=== PATIENT | male | born 1935 | race Caucasian/White ===

== ENCOUNTER → 2016-08-23 | Outpatient (REF) ==
[~2016-08-23] MED LIST: FLONASE NASAL S16 GM NS; MULTIPLE VITAMI1 CAP PO; NEXIUM 40MG40 MG PO; PROAIR HFA0.09 MG/AC IH; SYNTHROID0.2 MG/TAB PO
== END ==
LOC: ZLAB.WCH 11:11
DX: Z01.89 Encounter for other specified special examinations (principal)

== ENCOUNTER 2017-01-28 16:27 | Observation (INO) | payer OTHER ==
[~2017-01-28] VITALS: Ht 182.9 cm; Wt 97.5 kg
[2017-01-28] MEDS ORDERED: SYNTHROID0.2 MG/TAB PO (16:35)
[2017-01-28] MEDS ORDERED: PROAIR HFA0.09 MG/AC IH (16:36)
[2017-01-28] MEDS ORDERED: NEXIUM 40MG40 MG PO (16:36)
[2017-01-28] MEDS ORDERED: FLONASE NASAL S16 GM NS (16:37)
[2017-01-28] MEDS ORDERED: MULTIPLE VITAMI1 CAP PO (16:37)
[2017-01-28 17:46] LABS: BASO # 0.1 (0.0-0.2); BASO % 0.4 % (0.0-2.0); EOS # 0.5 (0.0-0.7); EOS % 3.9 % (0-4.0); GRAN # 10.6 (1.4-6.5); HEMATOCRIT 36.4 % (42.0-52.0); HEMOGLOBIN 12.8 g/dl (13.5-18.0); LYMPH # 1.2 (1.2-3.4); LYMPH % 8.8 % (20.0-51.0); MEAN CELL VOLUME 93 fl (80.0-100.0); MEAN CORPUSCULAR HEMOGLOBIN 33 pg (27.0-31.0); MEAN CORPUSCULAR HGB CONC 35 g/dl (33.0-37.0); MEAN PLATELET VOLUME 9.1 fl (7.4-10.4); MONO % 7.5 % (1.7-9.3); PLATELET COUNT 264 K/mm3 (130-400); REDCELL DISTRIBUTION WIDTH-CV 12.8 % (11.5-14.5); WHITE BLOOD COUNT 13.5 K/mm3 (4.8-10.8)
[2017-01-28 17:59] LABS: ADJUSTED CALCIUM 8.7 mg/dL (8.4-10.2); ALBUMIN 3.9 gm/dL (3.5-5.0); CALCIUM 8.6 mg/dL (8.4-10.2); CREATININE, serum 0.99 mg/dL (0.66-1.25); POTASSIUM 4.3 mmol/L (3.4-5.0); TOTAL PROTEIN 7.1 gm/dL (6.4-8.2)
[2017-01-28 18:06] LABS: PH 6 (5-8); SQUAMOUS EPITHELIAL None Seen /hpf; URINE APPEARANCE Clear; URINE BACTERIA None Seen /hpf; URINE BILIRUBIN Positive (NEGATIVE); URINE BLOOD Negative (NEGATIVE); URINE COLOR Yellow; URINE GLUCOSE Negative (NEGATIVE); URINE KETONE Trace (NEGATIVE); URINE UROBILINOGEN Negative (NEGATIVE); URINE WBC 0-2 /hpf
[2017-01-28 22:16] VITALS: BP 143/76; PULSE 92; TEMP 98.2
[2017-01-29 02:01] VITALS: BP 148/88; PULSE 103; TEMP 98.3
[2017-01-29 04:55] VITALS: BP 145/74; PULSE 91; TEMP 98.4
== END 2017-01-29 09:46 | disposition home or self-care (01) ==
LOC: COL.ER 16:27 → SURG 21:08
PROVIDERS: Emergency Medicine
DX: S51.022A Laceration with foreign body of left elbow, initial encounter (principal); S51.822A Laceration with foreign body of left forearm, initial encounter; S61.422A Laceration with foreign body of left hand, initial encounter; R00.0 Tachycardia, unspecified; V49.40XA Driver injured in collision with unspecified motor vehicles in traffic accident, initial encounter; K21.9 Gastro-esophageal reflux disease without esophagitis; J44.9 Chronic obstructive pulmonary disease, unspecified; R05 Cough; Z87.891 Personal history of nicotine dependence
CPT/HCPCS: G0378; J7030

== ENCOUNTER → 2017-03-04 | Outpatient (CLI) | payer MEDICARE, BC | LOC: COL.PUL 11:40 | DX: R05 Cough (principal); Z87.891 Personal history of nicotine dependence ==

== ENCOUNTER → 2017-04-19 | Outpatient (CLI) | payer MEDICARE, BC | LOC: COL.PUL 04-09 13:00 | DX: R05 Cough (principal); Z87.891 Personal history of nicotine dependence ==

== ENCOUNTER → 2017-10-17 | Outpatient (REF) | LOC: ZLAB.WCH 18:25 | DX: Z01.89 Encounter for other specified special examinations (principal) ==

== ENCOUNTER → 2018-03-21 | Outpatient (CLI) | payer MEDICARE, BC | LOC: COL.LAB 15:01 | DX: N40.0 Benign prostatic hyperplasia without lower urinary tract symptoms (principal) | CPT/HCPCS: G0103 ==

== ENCOUNTER → 2018-12-11 | Outpatient (CLI) | payer MEDICARE, BC ==
[2018-12-11 17:16] LABS: BASO % 0.4 % (0.0-2.0); EOS # 0.1 (0.0-0.7); EOS % 1.3 % (0-4.0); GRAN # 7.7 (1.4-6.5); HEMOGLOBIN 12.2 g/dl (13.5-18.0); LYMPH # 1.1 (1.2-3.4); LYMPH % 11.1 % (20.0-51.0); MEAN CELL VOLUME 93 fl (80.0-100.0); MEAN CORPUSCULAR HEMOGLOBIN 31 pg (27.0-31.0); MEAN CORPUSCULAR HGB CONC 33 g/dl (33.0-37.0); MEAN PLATELET VOLUME 9.6 fl (7.4-10.4); MONO # 0.6 (0.1-0.6); MONO % 6.4 % (1.7-9.3); PLATELET COUNT 340 K/mm3 (130-400); RED BLOOD COUNT 3.97 M/mm3 (4.20-5.60); REDCELL DISTRIBUTION WIDTH-CV 13.9 % (11.5-14.5)
[2018-12-11 17:30] LABS: HEMATOCRIT 36.9 % (42.0-52.0)
== END ==
LOC: ZCOL.LAB 16:19
PROVIDERS: Family Medicine
DX: E03.9 Hypothyroidism, unspecified (principal)

== ENCOUNTER → 2018-12-15 | Outpatient (CLI) | payer MEDICARE, BC ==
[~2018-12-15] MED LIST changes: +FLOMAX 0.40.4 MG/CAP PO; +RT ADVAIR 528 DISKUS IH; +RT SPIRIVA18 MCG IH; +ZOLOFT 25MG25 MG PO
[2018-12-15 18:22] LABS: ALBUMIN 4.2 gm/dL (3.5-5.0); CALCIUM 9.1 mg/dL (8.4-10.2); TOTAL PROTEIN 8.2 gm/dL (6.4-8.2)
[2018-12-15 19:39] LABS: CREATININE, serum 10.99 (0.66-1.25)
[2018-12-15 21:42] LABS: POTASSIUM 6.3 mmol/L (3.4-5.0)
== END ==
LOC: ZCOL.LAB 16:35
PROVIDERS: Family Medicine
DX: R42 Dizziness and giddiness (principal)

== ENCOUNTER 2018-12-16 10:59 | Inpatient (IN) | payer MEDICARE, BC ==
[2018-12-16] VITALS (331 sets, daily range): BP systolic 117–143; BP diastolic 55–91; PULSE 86–96; TEMP 98–98.8; O2SAT 82–100
[~2018-12-16] VITALS: Ht 182.9 cm; Wt 107.0 kg
[~2018-12-16 10:59] MED LIST changes: -FLOMAX 0.40.4 MG/CAP PO; -RT ADVAIR 528 DISKUS IH; -RT SPIRIVA18 MCG IH; -ZOLOFT 25MG25 MG PO
[2018-12-16 11:52] LABS: INR 1.1 (0.8-3.0); PROTHROMBIN TIME 12.8 SECONDS (9.7-12.8)
[2018-12-16 11:53] LABS: HEMATOCRIT 38.4 % (42.0-52.0); MEAN CELL VOLUME 93 fl (80.0-100.0); MEAN CORPUSCULAR HEMOGLOBIN 32 pg (27.0-31.0); MEAN CORPUSCULAR HGB CONC 34 g/dl (33.0-37.0); MEAN PLATELET VOLUME 8.6 fl (7.4-10.4); PLATELET COUNT 357 K/mm3 (130-400); RED BLOOD COUNT 4.13 M/mm3 (4.20-5.60); REDCELL DISTRIBUTION WIDTH-CV 13.7 % (11.5-14.5)
[2018-12-16 11:58] LABS: ALBUMIN 3.9 gm/dL (3.5-5.0); BILIRUBIN,TOTAL 0.9 mg/dL (0.0-1.0); CALCIUM 9.1 mg/dL (8.4-10.2); CREATININE, serum 10.26 (0.66-1.25); MAGNESIUM 2.1 mg/dL (1.6-2.3); PHOSPHOROUS 7.3 mg/dL (2.5-4.5); POTASSIUM 5.4 mmol/L (3.4-5.0); TOTAL PROTEIN 7.8 gm/dL (6.4-8.2)
[2018-12-16 12:16] LABS: EOSINOPHIL 6 % (0-4); LYMPHOCYTE 17 % (20.0-51.0); NEUTROPHILS 74 % (42.0-75.2); PLATELET ESTIMATE NORMAL (NORMAL)
[2018-12-16] MEDS ORDERED: ZOLOFT 25MG25 MG PO (12:40)
[2018-12-16 13:11] LABS: COLLECTION METHOD CLEAN CATCH
[2018-12-16 13:17] LABS: PH 6 (5-8); SQUAMOUS EPITHELIAL 0-2 /hpf; URINE APPEARANCE Clear; URINE BACTERIA None Seen /hpf; URINE BILIRUBIN Negative (NEGATIVE); URINE BLOOD 2+ (NEGATIVE); URINE COLOR Yellow; URINE GLUCOSE Negative (NEGATIVE); URINE KETONE Negative (NEGATIVE); URINE LEUKOCYTE ESTERASE Negative (NEGATIVE); URINE NITRATE Negative (NEGATIVE); URINE PROTEIN(semi-quant) 1+ (NEGATIVE); URINE UROBILINOGEN Negative (NEGATIVE)
--- NOTE | 2018-12-16 14:21 | NUR ---
Patient transferred to medical room 354. Sangita, student RN at bedside. Bed left in low and locked position, call light within reach, rails up x3, bed alarm armed and call light within reach. Family called and updated to patient location.
--- NOTE | 2018-12-16 14:50 | NUR ---
Patient arrives to ICU room 6 via ED cart. He is attached to monitors and assessment and vitals are as charted. Care assumed.
[2018-12-16] MEDS ORDERED: FLOMAX 0.40.4 MG/CAP PO (15:05)
[2018-12-16] MEDS ORDERED: RT SPIRIVA18 MCG IH (15:06)
[2018-12-16] MEDS ORDERED: RT ADVAIR 528 DISKUS IH (15:06)
--- NOTE | 2018-12-16 15:34 | NUR ---
Dr. Tate notified of consult.
[2018-12-16 16:09] LABS: CREATININE, serum 9.4 (0.66-1.25)
--- NOTE | 2018-12-16 16:10 | NUR ---
Dr. Tate rounds on patient at this time. Orders as entered CPOE.
--- NOTE | 2018-12-16 17:20 | NUR ---
Dr. Jernigan called regarding need for VTE orders and home medication review and order. states he will enter these CPOE. Care ongoing.
[2018-12-16 18:13] LABS: POTASSIUM 5.5 mmol/L (3.4-5.0)
[2018-12-16 18:34] LABS: CREATININE, serum 9.67 (0.66-1.25)
--- NOTE | 2018-12-16 21:00 | NUR ---
Patient resting in bed watching TV. No concerns at this time.
[2018-12-17] VITALS (451 sets, daily range): BP systolic 117–155; BP diastolic 55–86; PULSE 77–94; TEMP 97.6–98.6; O2SAT 89–99
--- NOTE | 2018-12-17 01:30 | NUR ---
Kendall patient yelling "help!" from room. Nurse went in to help patient at this time. Patient stated " I need to get out of here". Re-oriented by explaining that he is in the hospital and why he is here. Patient easily re-oriented and was appreciative for the assistance.
[2018-12-17 05:11] LABS: MEAN CELL VOLUME 94 fl (80.0-100.0); MEAN CORPUSCULAR HGB CONC 33 g/dl (33.0-37.0); MEAN PLATELET VOLUME 8.5 fl (7.4-10.4); PLATELET COUNT 325 K/mm3 (130-400); RED BLOOD COUNT 3.49 M/mm3 (4.20-5.60); REDCELL DISTRIBUTION WIDTH-CV 13.6 % (11.5-14.5)
[2018-12-17 05:16] LABS: HEMATOCRIT 32.9 % (42.0-52.0); HEMOGLOBIN 10.8 g/dl (13.5-18.0); MEAN CORPUSCULAR HEMOGLOBIN 31 pg (27.0-31.0)
[2018-12-17 05:22] LABS: ALBUMIN 3.3 gm/dL (3.5-5.0); BILIRUBIN,TOTAL 0.7 mg/dL (0.0-1.0); CALCIUM 8.3 mg/dL (8.4-10.2); POTASSIUM 4.7 mmol/L (3.4-5.0); TOTAL PROTEIN 6.7 gm/dL (6.4-8.2)
--- NOTE | 2018-12-17 05:31 | NUR ---
Critical K+ result not called to physician as trending downwards.
[2018-12-17 05:34] LABS: BILIRUBIN UNCONJUGATED 0.2 mg/dL (0.0-1.1); BILIRUBIN,DIRECT 0.4 mg/dL (0.0-0.4)
[2018-12-17 05:58] LABS: BAND 9 % (0-10); EOSINOPHIL 8 % (0-4); LYMPHOCYTE 10 % (20.0-51.0); METAMYELOCYTE 1 % (0-0); NEUTROPHILS 66 % (42.0-75.2)
[2018-12-17 05:59] LABS: PLATELET ESTIMATE NORMAL (NORMAL)
--- NOTE | 2018-12-17 07:30 | NUR ---
Report given to ADAM Garcia. Patient care transfered.
--- NOTE | 2018-12-17 09:52 | NUR ---
DAUGHTER HERE TO VISIT. DAUGHTER UPDATED ON PATIENT'S STATUS OVERNIGHT AND THIS AM.
--- NOTE | 2018-12-17 10:20 | NUR ---
CALLED DR PEREZ THE UROLOGIST PRESSROOM SUPERVISOR TO NOTIFY OF CONSULT. MESSAGE LEFT AT OFFICE. SPOKE WITH DR HOLLEY REGARDING POC. 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 NO PLANS FOR DIALYSIS CATHETER INSERTION. UPDATING PT'S DAUGHTER. PT ABLE TO EAT PER DR HOLLEY.
--- NOTE | 2018-12-17 12:18 | NUR ---
REPORT CALLED TO CYNTHIA MEDINA ON SURGICAL UNIT.
--- NOTE | 2018-12-17 12:45 | NUR ---
PT TRANSFERRED VIA WHEELCHAIR TO MEDICAL ROOM 344. PT'S BELONGINGS TRANSFERRED WITH PATIENT. DAUGHTER AT BEDSIDE. CONTACT MADE WITH CYNTHIA UPON TRANSFER.
--- NOTE | 2018-12-17 13:58 | NUR ---
pt to room 344 @ 1220 with report from Radha MEDINA. Pt a/o x3 but forgetful. Eaisly reorients, daughter at bedside. Patient has some scabs on forhead from past falls. Placed on fall precautions. Pt eating and drinking. no complaints at this time. dr Kelsey called for consult.
--- NOTE | 2018-12-17 14:08 | NUR ---
EVETTE student met with patient and patient's daughter (Vanessa) to discuss discharge plan. Patient lives independently just outside of [place]. Patient's PCP is Dr. Gali Wang and he uses [facility] for prescriptions. Patient has a cane at home but does not regularly use it. Patient reports independence with ADLs. Patient states he does have a DPOA-HC completed and it designates his daughter (Vanessa) as primary and his son as secondary. Daughter reports she has a copy at her home in . Patient's daughter inquired about discharge plan of home vs SNF. SW student explained what post-acute rehab would consist of and how the patient would have to qualify for Medicare Coverage with 3 midnight inpatient stays. Patient and Patient's daughter verbalized understanding and would like to wait to see how patient responds to treatment but are open to the option of SNF. SW to continue to follow.
--- NOTE | 2018-12-17 18:54 | NUR ---
REPORT TO SALOMON MEDINA.
--- NOTE | 2018-12-17 20:25 | NUR ---
Resting in recliner. Assessment complete. Lungs clear. Heart sounds normal. Bowels active x4. Pulses present throughout. Right lower leg edema +1. Left lower leg edema +2. Denies pain. Cline drainage without complications. Right forearm INT flushes without complications. Denies needs. Call light in reach.
--- NOTE | 2018-12-17 23:30 | NUR ---
Assisted to bed. Denies other needs. Call light in reach.
--- NOTE | 2018-12-18 02:23 | NUR ---
Resting in bed asleep. Call light in reach.
[2018-12-18 03:42] VITALS: BP 146/68; PULSE 85; TEMP 98.8
--- NOTE | 2018-12-18 03:54 | NUR ---
Resting in bed. Denies needs. Call light in reach.
--- NOTE | 2018-12-18 06:12 | NUR ---
Uneventful night. Resting in bed this AM. Cline without complications. Denies needs. Call light in reach.
--- NOTE | 2018-12-18 06:54 | NUR ---
Report given to ADAM Julio
[2018-12-18 07:05] LABS: BASO # 0.1 (0.0-0.2); BASO % 0.6 % (0.0-2.0); EOS # 0.4 (0.0-0.7); EOS % 5.3 % (0-4.0); GRAN # 5.4 (1.4-6.5); GRAN % 67.6 % (42.2-75.2); HEMOGLOBIN 10.8 g/dl (13.5-18.0); LYMPH # 1.4 (1.2-3.4); LYMPH % 17.1 % (20.0-51.0); MEAN CELL VOLUME 95 fl (80.0-100.0); MEAN CORPUSCULAR HEMOGLOBIN 31 pg (27.0-31.0); MEAN CORPUSCULAR HGB CONC 33 g/dl (33.0-37.0); MONO # 0.6 (0.1-0.6); PLATELET COUNT 307 K/mm3 (130-400); RED BLOOD COUNT 3.47 M/mm3 (4.20-5.60); REDCELL DISTRIBUTION WIDTH-CV 13.4 % (11.5-14.5)
[2018-12-18 07:07] LABS: HEMATOCRIT 32.9 % (42.0-52.0)
[2018-12-18 07:28] LABS: CALCIUM 8.8 mg/dL (8.4-10.2); POTASSIUM 4.3 mmol/L (3.4-5.0)
[2018-12-18 07:31] LABS: CREATININE, serum 7.27 (0.66-1.25)
[2018-12-18 07:42] VITALS: BP 144/81; PULSE 92; TEMP 98.3
--- NOTE | 2018-12-18 08:00 | NUR ---
PATIENT ASSISTED TO THE CHAIR THIS MORNING WITH PHYSICAL THERAPY. PATIENT IS A&OX4 WITH SOME CONFUSION AND FORGETFULNESS. VSS. TELE IN PLACE. BOWEL SOUNDS ACTIVE ALL FOUR QUADRANTS. PATIENT TOLERATING DIET WITHOUT COMPLAINTS OF N/V. POSITIVE PEDAL PULSES EQUAL BILATERALLY. 3+ PITTING-EDEMA TO FEET BILATERALLY. 2+ PITTING-EDEMA TO BLE NOTED. SHUKLA CATHETER TO DEPENDENT DRAINAGE DRAINING CLEAR YELLOW URINE TO SHUKLA BAG. CLOSED SCABBED ABRASIONS TO KNEES BILATERALLY AND WILLIE. CLOSED SCABBED ABRASIONS TO FOREHEAD X2 AND HELP DESK COORDINATOR. SEE MORNING ASSESSMENT. LEFT FOREARM TO INT. CALL LIGHT WITHIN REACH. CHAIR ALARM ON. PATIENT DENIES ANY NEEDS AT THIS TIME.
--- NOTE | 2018-12-18 10:58 | NUR ---
First visit from the geography teacher. No needs right now.
--- NOTE | 2018-12-18 11:17 | NUR ---
PATIENT AMBULATED HALLS WITH PHYSICAL THERAPY.
--- NOTE | 2018-12-18 11:35 | NUR ---
EVETTE seals and EVETTE informed by PT that patient would benefit from SNF. EVETTE student met with patient and patient's daughter to discuss rehab options. EVETTE seals presented Medicare.gov list of nursing homes in the [facility]. Patient and Patient's daughter would like to think and talk things over and do some research. EVETTE seals will follow up with patient and daughter this afternoon to complete patient choice form.
[2018-12-18 11:41] VITALS: BP 148/71; PULSE 79; TEMP 98.4
--- NOTE | 2018-12-18 13:46 | NUR ---
Patient and Patient's daughter have chosen 1) [facility] and 2) [facility]. EVETTE student presented choice form, patient signed. EVETTE student provided copy to patient's daughter. EVETTE student to contact and fax referral to [facility] and [facility]. SW to continue to follow.
--- NOTE | 2018-12-18 14:55 | NUR ---
SW was informed that [facility] and [facility] have both accepted the patient. ML came to meet patient and daughter. SW to continue to follow.
--- NOTE | 2018-12-18 15:46 | NUR ---
After patient and daughter visited with Eliecer (with [facility]), EVETTE student met with patient and daughter. Patient would like to pursue with [facility] for a skilled stay. EVETTE updated [facility] and ML of patient's choice. SW to continue to follow.
[2018-12-18 15:47] VITALS: BP 162/78; PULSE 81; TEMP 98.5
--- NOTE | 2018-12-18 19:00 | NUR ---
REPORT GIVEN TO ADAM MONTGOMERY.
[2018-12-18 19:25] VITALS: BP 162/76; PULSE 88; TEMP 98.5
--- NOTE | 2018-12-18 19:40 | NUR ---
Patient sitting in recliner watching tv. Assessment completed- lungs clear ,abdominal sounds active, pulses +2 pedal, +3 radial, cap refill <3 seconds, denies pain. Indwelling batres in place- draining clear and yellow. Alert and oriented with intermittent confusion, chair alarm on. No further needs at this time.
[2018-12-18 23:33] VITALS: BP 154/81; PULSE 88; TEMP 99.2
[2018-12-19 03:41] VITALS: BP 152/72; PULSE 96; TEMP 98.7
--- NOTE | 2018-12-19 05:01 | NUR ---
Pt slept most of the night. VSS, no reports of pain.
--- NOTE | 2018-12-19 06:41 | NUR ---
Report given to ADAM Julio. Patient currently asleep at this time.
[2018-12-19 07:32] LABS: POTASSIUM 4.4 mmol/L (3.4-5.0)
[2018-12-19 07:38] LABS: CREATININE, serum 5.82 (0.66-1.25)
--- NOTE | 2018-12-19 08:00 | NUR ---
PATIENT UP TO THE CHAIR WITH PHYSICAL THERAPY THIS MORNING. PATIENT IS A&OX4 WITH SOME INTERMITTENT CONFUSION AND IMPULSIVENESS. VSS. TELE IN PLACE. ABRASIONS X2 TO FOREHEAD SCABBED, CLOSED AND WILLIE. ABRASIONS TO KNEES BILATERALLY. KNEE ABRASIONS SCABBED, CLOSED AND WORKCELL OPERATOR. RIGHT ELBOW ABRASION DRESSED WITH A BANDAID AND IS CD&I. 3+ PITTING-EDEMA TO FEET BILATERALLY. SHUKLA CATHETER TO DEPENDENT DRAINAGE WITH MODERATE AMOUNTS OF CLEAR PALE YELLOW URINE PRESENT IN SHUKLA BAG. LEFT WRIST TO INT. SEE MORNING ASSESSMENT. PATIENT DENIES PAIN AT THIS TIME. CALL LIGHT WITHIN REACH. DAUGHTER PRESENT AT THE BEDSIDE.
[2018-12-19 08:41] VITALS: BP 137/73; PULSE 91; TEMP 98.4
--- NOTE | 2018-12-19 11:40 | NUR ---
DISCHARGE INSTRUCTIONS REVIEWED WITH PATIENT. ALL QUESTIONS ANSWERED. PATIENT PERSONAL BELONGINGS GATHERED. PATIENT WAITING ON SON TO ARRIVE TO DISCHARGE.
[2018-12-19 12:30] VITALS: BP 127/75; PULSE 88; TEMP 98.5
[2018-12-19 14:30] VITALS: BP 150/76; PULSE 80; TEMP 97.5
--- NOTE | 2018-12-19 15:38 | NUR ---
EVETTE student faxed updates to Eliecer at [facility]. Discharge set for tomorrow (12/20).
--- NOTE | 2018-12-19 16:40 | NUR ---
PATIENT VOIDED 200MLS OF CLEAR YELLOW URINE POST CATHETER REMOVAL. PATIENT DENIES ANY PAINFUL OR DIFFICULTY VOIDING. PATIENT BLADDER SCANNED. 140 MLS OF URINE PRESENT IN BLADDER. HIMANSHU MOCTEZUMA NOTIFIED. ORDERS GIVEN TO LEAVE CATHETER OUT AND TO BLADDER SCAN PATIENT POST VOID FOR THE NEXT COUPLE VOIDS.
--- NOTE | 2018-12-19 17:50 | NUR ---
Patient sitting up in recliner. Daughter at bedside off and on. Single stick to right forearm, unsecssfuly, pt tolerated well with no compaints of pain, bleeding, or redness.Call light within reach, no further needs at this time. Reporto off to Primary nurse, ADAM Julio.
--- NOTE | 2018-12-19 18:30 | NUR ---
PATIENT VOIDED 225 MLS OF CLEAR YELLOW URINE. PATIENT BLADDER SCANNED FOR POST-VOID RESIDUALS. 230 MLS OF URINE PRESENT IN THE BLADDER. WILL CONTINUE TO MONITOR.
--- NOTE | 2018-12-19 18:46 | NUR ---
REPORT GIVEN TO ADAM MONTGOMERY.
--- NOTE | 2018-12-19 19:21 | NUR ---
Patient sitting in relciner watching tv. Assessment copmleted- lungs clear, abdominal sounds active, pulses +2 pedal, +3 radial, cap refill <3 seconds, denies pain, alert and oriented. Reminded pt to notify staff when needing to urinate for post void residual- patient stated he understood.
[2018-12-19 20:00] VITALS: BP 142/86; PULSE 80; TEMP 99
--- NOTE | 2018-12-19 21:14 | NUR ---
Pt voided 250, post void residual 136. Pt reports he feels as if he emptied copmletely. Returned to chair. RT now at bedside.
--- NOTE | 2018-12-19 22:00 | NUR ---
VOIDED 200 MLS, POST VOID 108.
--- NOTE | 2018-12-19 23:35 | NUR ---
VOIDED 150, POST VOID 128 MLS.
[2018-12-20 00:13] VITALS: BP 151/70; PULSE 81; TEMP 98.8
--- NOTE | 2018-12-20 03:03 | NUR ---
Call from telemery, pt's HR in 120's. Patient ambultaing to restroom at this time. Returned to bed, HR now coming back down, in the 90's.
[2018-12-20 03:41] VITALS: BP 140/65; PULSE 98; TEMP 98.3
--- NOTE | 2018-12-20 05:10 | NUR ---
Pt slept on/off last night. Continuing to void q2-3 hours. VSS, no reports ofpain.
[2018-12-20 07:06] LABS: BASO % 0.4 % (0.0-2.0); EOS # 0.3 (0.0-0.7); GRAN # 7.3 (1.4-6.5); GRAN % 74.9 % (42.2-75.2); HEMOGLOBIN 11.1 g/dl (13.5-18.0); LYMPH # 1.3 (1.2-3.4); LYMPH % 13.3 % (20.0-51.0); MEAN CELL VOLUME 93 fl (80.0-100.0); MEAN CORPUSCULAR HEMOGLOBIN 31 pg (27.0-31.0); MEAN CORPUSCULAR HGB CONC 33 g/dl (33.0-37.0); MEAN PLATELET VOLUME 9.2 fl (7.4-10.4); MONO # 0.7 (0.1-0.6); MONO % 7.4 % (1.7-9.3); PLATELET COUNT 265 K/mm3 (130-400); RED BLOOD COUNT 3.58 M/mm3 (4.20-5.60); REDCELL DISTRIBUTION WIDTH-CV 13.2 % (11.5-14.5)
[2018-12-20 07:13] LABS: HEMATOCRIT 33.3 % (42.0-52.0)
--- NOTE | 2018-12-20 07:15 | NUR ---
Report received from ADAM Myers. PT in bed resting, bed alarm on will continue to monitor.
[2018-12-20 07:23] LABS: CALCIUM 9.1 mg/dL (8.4-10.2); CREATININE, serum 4.97 (0.66-1.25); POTASSIUM 4.6 mmol/L (3.4-5.0)
--- NOTE | 2018-12-20 07:25 | NUR ---
Report given to ADAM Garsia.
[2018-12-20 08:00] VITALS: BP 140/53; PULSE 89; TEMP 98.8
--- NOTE | 2018-12-20 10:13 | NUR ---
Assessment charted. Pt up to bathroom often, does not call and just goes without having called, still impulsive and does not use urinal unless explicitly stated. PVR for last urination was 248 mls, notified dr. Ly. COHEN to . Scabs to knees bilaterally. LLE +1 edema. Daughter now at bedside, will continue to monitor.
[2018-12-20 10:37] VITALS: BP 120/63; PULSE 97; TEMP 100
--- NOTE | 2018-12-20 12:01 | NUR ---
Spoke with Dr. Tate regarding patient. He would like to have [facility] bladder scan q12 hours, catheterize if greater than 400 mls in bladder. Also if no void for more than 12 hours, catheterize patient.
[2018-12-20 12:47] VITALS: BP 120/63; PULSE 97; TEMP 100
--- NOTE | 2018-12-20 12:52 | NUR ---
The patient is to discharge today, 12/[address] [facility] for a skilled stay. SW faxed the discharge orders to [facility] and confirmed a between 1400 or 1430 transport time. SW contacted the patient's daughter to update her on transport time. There are no additional needs at this time.
--- NOTE | 2018-12-20 13:11 | NUR ---
Report called to [facility] nurse who will be resuming care. REturned pharmacy medications to the patient's daughter Vanessa who will take them home. Pt ready for discharge, will leave with all belongings with [facility] staff when they arrive. Criteria met.
--- NOTE | 2018-12-20 14:30 | NUR ---
Pt picked up by [facility] transport at this time via w/c. Left wtih all bleongings, criteria met.
== END 2018-12-20 14:35 | DRG 683 ==
LOC: COL.ER 10:59 → ICU 13:01 → SURG 13:01
PROVIDERS: Family Medicine; Physician Assistant; ADMIT Hospitalist
DX: N17.9 Acute kidney failure, unspecified (principal); E87.2 Acidosis; N13.8 Other obstructive and reflux uropathy; E87.5 Hyperkalemia; N40.1 Benign prostatic hyperplasia with lower urinary tract symptoms; N18.9 Chronic kidney disease, unspecified; J44.9 Chronic obstructive pulmonary disease, unspecified; E03.9 Hypothyroidism, unspecified; Z87.891 Personal history of nicotine dependence; N28.1 Cyst of kidney, acquired; D64.9 Anemia, unspecified; E83.39 Other disorders of phosphorus metabolism; F32.9 Major depressive disorder, single episode, unspecified; R73.03 Prediabetes
CPT/HCPCS: 99223-AI; 99231-AI; 99232-AI; 99239; J1644; J1815; J7030

== ENCOUNTER → 2018-12-23 | Outpatient (REF) ==
[~2018-12-23] MED LIST changes: +FLOMAX 0.40.4 MG/CAP PO; +RT ADVAIR 528 DISKUS IH; +RT SPIRIVA18 MCG IH; +ZOLOFT 25MG25 MG PO
[2018-12-23 14:20] LABS: CALCIUM 9.2 mg/dL (8.4-10.2); CREATININE, serum 3.38 (0.66-1.25); POTASSIUM 4.3 mmol/L (3.4-5.0)
== END ==
LOC: ZLAB.STJ 13:56
PROVIDERS: Internal Medicine
DX: N17.9 Acute kidney failure, unspecified (principal)

== ENCOUNTER → 2018-12-25 | Outpatient (CLI) | payer MEDICARE, BC ==
[2018-12-25 16:34] LABS: BASO # 0.1 (0.0-0.2); BASO % 0.8 % (0.0-2.0); EOS # 0.2 (0.0-0.7); EOS % 3.2 % (0-4.0); GRAN # 4.9 (1.4-6.5); HEMOGLOBIN 11.6 g/dl (13.5-18.0); LYMPH # 1.2 (1.2-3.4); LYMPH % 16.7 % (20.0-51.0); MEAN CELL VOLUME 96 fl (80.0-100.0); MEAN CORPUSCULAR HEMOGLOBIN 31 pg (27.0-31.0); MEAN CORPUSCULAR HGB CONC 32 g/dl (33.0-37.0); MEAN PLATELET VOLUME 10.4 fl (7.4-10.4); MONO # 0.8 (0.1-0.6); MONO % 10.9 % (1.7-9.3); PLATELET COUNT 341 K/mm3 (130-400); RED BLOOD COUNT 3.74 M/mm3 (4.20-5.60); REDCELL DISTRIBUTION WIDTH-CV 13.5 % (11.5-14.5)
[2018-12-25 16:38] LABS: HEMATOCRIT 35.9 % (42.0-52.0)
[2018-12-25 16:46] LABS: ALBUMIN 4.2 gm/dL (3.5-5.0); BILIRUBIN,TOTAL 0.6 mg/dL (0.0-1.0); CALCIUM 9.5 mg/dL (8.4-10.2); CREATININE, serum 2.95 (0.66-1.25); PHOSPHOROUS 4.1 mg/dL (2.5-4.5); POTASSIUM 4.1 mmol/L (3.4-5.0); TOTAL PROTEIN 8.3 gm/dL (6.4-8.2)
== END ==
LOC: ZCOL.LAB 16:10
PROVIDERS: Family Medicine
DX: D64.9 Anemia, unspecified (principal); N19 Unspecified kidney failure

== ENCOUNTER → 2019-01-14 | Outpatient (CLI) | payer MEDICARE, BC | LOC: ZCOL.LAB 17:03 | DX: L02.91 Cutaneous abscess, unspecified (principal) ==

== ENCOUNTER → 2019-01-21 | Outpatient (CLI) | payer MEDICARE, BC ==
[2019-01-21 19:10] LABS: BASO % 0.4 % (0.0-2.0); EOS # 0.2 (0.0-0.7); EOS % 2.2 % (0-4.0); GRAN # 5.7 (1.4-6.5); GRAN % 70.2 % (42.2-75.2); HEMOGLOBIN 11.3 g/dl (13.5-18.0); LYMPH # 1.5 (1.2-3.4); LYMPH % 18.1 % (20.0-51.0); MEAN CELL VOLUME 97 fl (80.0-100.0); MEAN CORPUSCULAR HEMOGLOBIN 32 pg (27.0-31.0); MEAN CORPUSCULAR HGB CONC 33 g/dl (33.0-37.0); MONO # 0.7 (0.1-0.6); MONO % 8.7 % (1.7-9.3); PLATELET COUNT 289 K/mm3 (130-400); RED BLOOD COUNT 3.56 M/mm3 (4.20-5.60); REDCELL DISTRIBUTION WIDTH-CV 14.1 % (11.5-14.5)
[2019-01-21 19:26] LABS: HEMATOCRIT 34.4 % (42.0-52.0)
[2019-01-21 19:33] LABS: CALCIUM 9.2 mg/dL (8.4-10.2); CREATININE, serum 1.54 (0.66-1.25); POTASSIUM 5.1 mmol/L (3.4-5.0)
[2019-01-21 20:04] LABS: PSA-TOTAL 7.53 ng/mL (0-4)
== END ==
LOC: ZCOL.LAB 17:48
PROVIDERS: Family Medicine
DX: N17.9 Acute kidney failure, unspecified (principal); N40.0 Benign prostatic hyperplasia without lower urinary tract symptoms
CPT/HCPCS: G0103

== ENCOUNTER → 2019-03-23 | Outpatient (CLI) | payer MEDICARE, BC ==
[2019-03-23 18:48] LABS: BASO % 0.4 % (0.0-2.0); EOS # 0.2 (0.0-0.7); EOS % 2.2 % (0-4.0); GRAN # 5.9 (1.4-6.5); GRAN % 72.9 % (42.2-75.2); LYMPH # 1.2 (1.2-3.4); LYMPH % 14.5 % (20.0-51.0); MEAN CELL VOLUME 95 fl (80.0-100.0); MEAN CORPUSCULAR HEMOGLOBIN 32 pg (27.0-31.0); MEAN CORPUSCULAR HGB CONC 34 g/dl (33.0-37.0); MEAN PLATELET VOLUME 9.6 fl (7.4-10.4); MONO # 0.8 (0.1-0.6); MONO % 9.5 % (1.7-9.3); PLATELET COUNT 383 K/mm3 (130-400); REDCELL DISTRIBUTION WIDTH-CV 12.7 % (11.5-14.5)
[2019-03-23 19:03] LABS: CALCIUM 9.3 mg/dL (8.4-10.2); CREATININE, serum 1.17 (0.66-1.25); POTASSIUM 5.7 mmol/L (3.4-5.0)
== END ==
LOC: ZCOL.LAB 16:40
PROVIDERS: Family Medicine
DX: N18.9 Chronic kidney disease, unspecified (principal)

== ENCOUNTER → 2019-04-08 | Outpatient (CLI) | payer MEDICARE, BC ==
[2019-04-08 18:23] LABS: CREATININE, serum 1.14 (0.66-1.25); POTASSIUM 4.6 mmol/L (3.4-5.0)
== END ==
LOC: ZCOL.LAB 16:08
PROVIDERS: Family Medicine
DX: E78.5 Hyperlipidemia, unspecified (principal)

== ENCOUNTER 2021-06-04 15:03 | Inpatient (IN) | payer MEDICARE, BC ==
[~2021-06-04] VITALS: Ht 182.9 cm; Wt 95.1 kg
[2021-06-04 15:34] LABS: HEMATOCRIT 38.9 % (42.0-52.0); HEMOGLOBIN 13.8 g/dl (13.5-18.0); MEAN CELL VOLUME 92 fl (80.0-100.0); MEAN CORPUSCULAR HEMOGLOBIN 33 pg (27.0-31.0); MEAN CORPUSCULAR HGB CONC 36 g/dl (33.0-37.0); MEAN PLATELET VOLUME 8.8 fl (7.4-10.4); PLATELET COUNT 280 K/mm3 (130-400); RED BLOOD COUNT 4.25 M/mm3 (4.20-5.60); REDCELL DISTRIBUTION WIDTH-CV 12.5 % (11.5-14.5)
[2021-06-04 15:39] LABS: COLLECTION METHOD CLEAN CATCH
[2021-06-04 15:44] LABS: MUCOUS Present /lpf; PH 6 (5-8); SQUAMOUS EPITHELIAL 0-2 /hpf; URINE APPEARANCE Hazy; URINE BACTERIA None Seen /hpf; URINE BILIRUBIN Negative (NEGATIVE); URINE BLOOD 3+ (NEGATIVE); URINE COLOR Amber; URINE GLUCOSE Negative (NEGATIVE); URINE KETONE Negative (NEGATIVE); URINE LEUKOCYTE ESTERASE Negative (NEGATIVE); URINE NITRATE Negative (NEGATIVE); URINE PROTEIN(semi-quant) 2+ (NEGATIVE); URINE UROBILINOGEN Negative (NEGATIVE)
[2021-06-04 15:53] LABS: ALBUMIN 3.5 gm/dL (3.4-4.8); BILIRUBIN,TOTAL 1.6 mg/dL (0.2-1.2); CALCIUM 9.1 mg/dL (8.4-10.2); POTASSIUM 3.9 mmol/L (3.5-4.5); TOTAL PROTEIN 7.2 gm/dL (6.2-8.1)
[2021-06-04 16:11] LABS: LYMPHOCYTE 2 % (20.0-51.0); NEUTROPHILS 96 % (42.0-75.2)
[2021-06-04 16:12] LABS: PLATELET ESTIMATE NORMAL (NORMAL)
[2021-06-04 16:20] LABS: CREATININE, serum 1.46 mg/dL (0.72-1.25)
[2021-06-04 20:05] VITALS: BP 102/55; PULSE 94; TEMP 99
--- NOTE | 2021-06-04 21:00 | NUR ---
PT ARRIVES TO ROOM 325 VIA ER CART @ 1954. PT IS TRANSFERRED INTO BED WITH 2 ASSIST. DAUGHTER @ BEDSIDE. PT IS ALERT ET ORIENTED TO PLACE BUT BECOMES CONFUSED ABOUT SITUATION. SHORT TERM MEMORY IS POOR. PT'S DAUGHTER PROVIDES A MED LIST FOR THE MED REC TO BE COMPLETED. PT ET DAUGHTER EDUCATED ON CURRENT VISIOR RESTRICTIONS, VERBALIZES UNDERSTANDING. PT HAS LOWER DENTURES @ BEDSIDE ET HIS GLASSES ON. PT STATES THAT HE USES A CANE @ HOME TO AMBULATE ET ASKS ABOUT IT BUT NO CANE WAS BROUGHT TO ROOM WITH HIM. IV FLUIDS INFUSING. PT DENIES ANY PAIN OR SOB. PT STATES THAT HE DRINKS A GLASS OF WINE EVERY NIGHT BEFORE BED BUT THAT IT IS A PRETTY BIG GLASS. ALSO STATES THAT HE USUALLY DRINKS 1 16OZ BOTTLE OF WATER/DAY. PT EDUCATED MEDICAL CONCIERGE LIGHT, FALL PRECAUTIONS, FLUID ENCOURAGEMENT, ET PERIPHERAL IV. RECALL IS LIMITED. BED ALARM ON, CALL LIGHT WITHIN REACH.
[2021-06-04] MEDS ORDERED: ZOLOFT 25MG25 MG PO (22:26)
[2021-06-05 00:22] VITALS: BP 104/56; PULSE 97; TEMP 97.8
--- NOTE | 2021-06-05 00:30 | NUR ---
PT'S BED ALARM BEGINS ALARMING. PT IS SITIING ON EDGE OF BED ATTEMPTING TO STAND UP. PT IS TOLD TO SIT BACK DOWN BUT IS VERY IMPULSIVE ET TRIES TO STAND UP. PT DOES NOT UNDERSTAND WHY HE HAS TO WAIT FOR HELP TO LEAVE BED. ATTEMPT MADE TO RE-ORIENT PT BUT QUICKLY FORGETS AGAIN. PT REPEATEDLY ASKS WHAT HIS IV IS ET PULLS ON TUBING. PT IS ASSISTED WITH 1 ASSIST TO STAND AT BEDSIDE TO USE URINAL. PT'S URINE IS TEA COLORED ET CLOUDY. PT ASSISTED BACK INTO BED, GAIT IS VERY UNSTEADY ET PT LIMPS ON LEFT LEG. PT STATES THAT HE HAS A BAD KNEE. RE-ORIENTED TO CALL LIGHT ET FALL PRECAUTIONS. PT DOES NOT REMEMBER FALLING RECENTLY @ HOME. BED ALARM ON.
[2021-06-05] MEDS ORDERED: EUTHYROX175 MCG PO (03:01)
[2021-06-05 03:21] VITALS: BP 121/57; PULSE 99; TEMP 98.5
--- NOTE | 2021-06-05 03:45 | NUR ---
PT SETS OFF BED ALARM TRYING TO LEAVE BED BY SELF. CONTINUES TO BE PLEASANTLY CONFUSED. PT IS ASSISTED TO STAND ET URINATE IN URINAL. PT URINATES 100 ML OF DARK TEA COLORED CLOUDY URINE. PT IS SLOW TO START STREAM OF URINE. PT ASSISTED BACK INTO BED. BED ALARM ON. CALL LIGHT WITHIN REACH.
--- NOTE | 2021-06-05 06:20 | NUR ---
PT USES CALL LIGHT TO ASK FOR BR ASSISTANCE. PT IS ASSISTED TO STAND @ EDGE OF BED TO USE URINAL. PT URINATES 100 ML DARK JAYLA URINE IN THE URINAL. PT MOVES THE URINAL ET ACCIDENTLY URINATES A MODERATE AMOUNT ONTO THE FLOOR. PT IS ASSISSTED BACK INTO BED. LAB HERE TO DRAW BLOOD. BED ALARM IS ON, CALL LIGHT WITHIN REACH.
[2021-06-05 08:17] VITALS: BP 95/45; PULSE 94; TEMP 99.4
[2021-06-05 08:27] LABS: HEMOGLOBIN 12.1 g/dl (13.5-18.0); MEAN CELL VOLUME 94 fl (80.0-100.0); MEAN CORPUSCULAR HEMOGLOBIN 33 pg (27.0-31.0); MEAN CORPUSCULAR HGB CONC 35 g/dl (33.0-37.0); MEAN PLATELET VOLUME 9.4 fl (7.4-10.4); PLATELET COUNT 246 K/mm3 (130-400); RED BLOOD COUNT 3.68 M/mm3 (4.20-5.60); REDCELL DISTRIBUTION WIDTH-CV 12.9 % (11.5-14.5)
[2021-06-05 08:33] LABS: HEMATOCRIT 34.4 % (42.0-52.0)
--- NOTE | 2021-06-05 09:00 | NUR ---
PT UP TO SIDE OF BED FOR BREAKFAST. ATE 100 % OF BREAKFAST. PT IS NOW A/O X4. SOME CONFUSION NOTED AT SHIFT CHANGE THAT APPEARS TO HAVE RESOLVED.
[2021-06-05 09:07] LABS: ALBUMIN 2.8 gm/dL (3.4-4.8); CALCIUM 8.1 mg/dL (8.4-10.2); CREATININE, serum 1.21 mg/dL (0.72-1.25); POTASSIUM 3.8 mmol/L (3.5-4.5); TOTAL PROTEIN 5.9 gm/dL (6.2-8.1)
[2021-06-05 09:27] LABS: BAND 18 % (0-10); LYMPHOCYTE 10 % (20.0-51.0); NEUTROPHILS 66 % (42.0-75.2)
[2021-06-05 09:28] LABS: PLATELET ESTIMATE NORMAL (NORMAL)
--- NOTE | 2021-06-05 09:41 | NUR ---
SW unsuccessful in waking patient at time of visit; Chart review indicates pt lives alone [place]; pt is and daughter Elva ([phone]) lives in [place] as well. PCP is listed as Evelyn Alfaro PA-C. SW will follow up when pt is awake.
[2021-06-05 12:10] VITALS: BP 111/55; PULSE 86; TEMP 99
--- NOTE | 2021-06-05 14:06 | NUR ---
EVETTE met with patient and his dtr, Elva Limon , to discuss discharge plan. Pt reports he lives in a 2 story house but he lives on the 2nd level. Dtr lives in [place] but is actively involved in pt's life. She assisted in answering questions and is also pt's MPOA. Pt states he lives alone and enjoys being a loner. He has a raised toilet seat, shower chair, and a walking cane that he uses most of the time. Dtr states pt was in rehab a couple of yrs ago but could not recall where. Pt states he realizes he's going to have to leave his house someday but he wants to wait. Pt receives his medications at [facility] ad he sees Evelyn Alfaro PA-C. Pt and dtr are ok to have home health care. List provided and they want a referral sent to [facility]. Referral faxed. *D/C home with home health
[2021-06-05 15:37] VITALS: BP 119/59; PULSE 96; TEMP 98.7
[2021-06-05 19:26] VITALS: BP 121/66; PULSE 98; TEMP 98.8
--- NOTE | 2021-06-05 20:06 | NUR ---
PATIENT IS ALERT AND ORIENTED X3 BUT HAS SOME CONFUSION. PATIENT HAS CARPELT TUNNEL TO RIGHT WRIST AND IV TO LEFT WRIST. PATIENT WEARING PULL UPS DUE TO COME INCONTINENCE. PATIENT IS ON GENERAL DIET AND TELE. WILBER HAD LOVENOX PER ORDERS AND HAS SCD'S IN ROOM. PATIENT HAS BED ALARM ON. PATIENT GIVEN MORE ICE WATER. PATIENT DENIES PAIN OR FURTHER NEEDS AT THIS TIME. CALL LIGHT WITHIN REACH. HEAD TO TOE ASSESSMENT COMPLETE.
--- NOTE | 2021-06-05 21:39 | NUR ---
PATIENT EXPRESSED HE WOULD BE INTERESTED IN GETTING A WALKER. WILL REPORT TO DAYSALFT.
[2021-06-06 00:58] VITALS: BP 140/72; PULSE 96; TEMP 98.5
[2021-06-06 05:10] VITALS: BP 122/62; PULSE 93; TEMP 98.5
--- NOTE | 2021-06-06 06:07 | NUR ---
PATIENT DID WELL THROUGHOUT NIGHT. BED ALARM ON ALL NIGHT. GOT UP TO BATHROOM A FEEW TIMES THROUGHOUT THE NIGHT. NO FURTHER NEEDS AT THIS TIME. WILL REPORT TO DAYSNVFT
[2021-06-06 06:49] LABS: BASO % 0.1 % (0.0-2.0); EOS % 0.3 % (0-4.0); GRAN # 5.9 K/mm3 (1.4-6.5); GRAN % 80.4 % (42.2-75.2); HEMOGLOBIN 10.7 g/dl (13.5-18.0); LYMPH # 0.8 K/mm3 (1.2-3.4); LYMPH % 10.7 % (20.0-51.0); MEAN CELL VOLUME 92 fl (80.0-100.0); MEAN CORPUSCULAR HEMOGLOBIN 32 pg (27.0-31.0); MEAN CORPUSCULAR HGB CONC 35 g/dl (33.0-37.0); MEAN PLATELET VOLUME 9.2 fl (7.4-10.4); MONO # 0.6 K/mm3 (0.1-0.6); MONO % 8.1 % (1.7-9.3); PLATELET COUNT 221 K/mm3 (130-400); RED BLOOD COUNT 3.32 M/mm3 (4.20-5.60); REDCELL DISTRIBUTION WIDTH-CV 12.8 % (11.5-14.5)
[2021-06-06 06:50] LABS: HEMATOCRIT 30.4 % (42.0-52.0)
[2021-06-06 07:10] LABS: ALBUMIN 2.6 gm/dL (3.4-4.8); BILIRUBIN,TOTAL 0.6 mg/dL (0.2-1.2); CALCIUM 8.3 mg/dL (8.4-10.2); CREATININE, serum 1.04 mg/dL (0.72-1.25); POTASSIUM 3.5 mmol/L (3.5-4.5); TOTAL PROTEIN 5.6 gm/dL (6.2-8.1)
[2021-06-06 07:16] VITALS: BP 140/72; PULSE 100; TEMP 98.8
[2021-06-06] MEDS ORDERED: CEPHALEXIN500 M1 PO (09:27)
[2021-06-06 09:44] VITALS: BP 127/63; PULSE 100
--- NOTE | 2021-06-06 10:28 | NUR ---
Initial visit; Patient thanked Safety Instruction Police Officer for looking in on him and keeping him in her prayers.
[2021-06-06 11:51] VITALS: BP 134/65; PULSE 90; TEMP 98.5
--- NOTE | 2021-06-06 12:42 | NUR ---
Patient alert and oriented, answers questions appropriately. See assessment. Patient with no AMS at this time, recants events of the morning and follows conversation appropriately. No c/o urinary burning, frequency or hesitancy. No other c/o at this time.
--- NOTE | 2021-06-06 14:25 | NUR ---
EVETTE faxed DME order to [facility] for walker as patient has discharge orders for today. Instructed patient's daughter that she would need to pick walker up from their office after discharged.
--- NOTE | 2021-06-06 16:03 | NUR ---
Discharge instructions reviewed with patient and daughter, verbalized understanding. Discharged via wheelchair to auto/home with daughter at 1555.
--- NOTE | 2021-06-08 11:51 | NUR ---
Vanessa, at [facility], contacted this SW. She reports thats they did not get the patient's orders. The patient discharged home on 06/06 with home health services for shelter/PT/OT from [facility]. SW faxed the patient's orders and discharge summary to Vanessa at [facility].
== END 2021-06-06 15:55 | disposition home health service (06) | DRG 682 ==
LOC: COL.ER 15:03 → SURG 17:39
PROVIDERS: Physician Assistant; ADMIT Internal Medicine
DX: N17.9 Acute kidney failure, unspecified (principal); G93.41 Metabolic encephalopathy; E87.1 Hypo-osmolality and hyponatremia; N39.0 Urinary tract infection, site not specified; L03.115 Cellulitis of right lower limb; I80.211 Phlebitis and thrombophlebitis of right iliac vein; R65.10 Systemic inflammatory response syndrome (SIRS) of non-infectious origin without acute organ dysfunction; J44.9 Chronic obstructive pulmonary disease, unspecified; E03.9 Hypothyroidism, unspecified; I12.9 Hypertensive chronic kidney disease with stage 1 through stage 4 chronic kidney disease, or unspecified chronic kidney disease; N18.9 Chronic kidney disease, unspecified; R32 Unspecified urinary incontinence; N40.1 Benign prostatic hyperplasia with lower urinary tract symptoms; R39.15 Urgency of urination; G31.84 Mild cognitive impairment of uncertain or unknown etiology; E86.1 Hypovolemia; R73.9 Hyperglycemia, unspecified; E86.0 Dehydration; F17.210 Nicotine dependence, cigarettes, uncomplicated; M25.562 Pain in left knee; M25.561 Pain in right knee; M25.551 Pain in right hip; I08.3 Combined rheumatic disorders of mitral, aortic and tricuspid valves; R31.9 Hematuria, unspecified; Z20.822 Contact with and (suspected) exposure to COVID-19; Z23 Encounter for immunization
CPT/HCPCS: 99222-AI; 99233-AI; 99239; J0696; J1650; J7030

== ENCOUNTER 2024-03-13 14:52 | Inpatient (IN) | payer MEDICARE, BC ==
[~2024-03-13] VITALS: Ht 182.9 cm; Wt 94.5 kg
[~2024-03-13 14:52] MED LIST changes: +CEPHALEXIN500 M1 PO; +EUTHYROX150 MCG PO; +Thiamine 100 MG TAB PO SCH
[2024-03-13] MEDS ORDERED: oxyCODONE 5 MG TAB PO PRN (16:30)
[2024-03-13] MEDS ORDERED: D5 1/2 NS 1,000 ML IV SCH (16:30)
[2024-03-13] MEDS ORDERED: Morphine 4 MG/ML VIAL IV PRN (16:30)
[2024-03-13] MEDS ORDERED: Naloxone 0.4 MG/ML VIAL IV PRN (16:30)
[2024-03-13] MEDS ORDERED: Albuterol/Ipratropium 3 MG-0.5 MG/3 ML Neb Soln IH PRN (16:45)
[2024-03-13 17:12] LABS: BASO % 0.2 % (0.0-2.0); EOS # 0.3 K/mm3 (0.0-0.7); GRAN # 6.8 K/mm3 (1.4-6.5); GRAN % 78.1 % (42.2-75.2); HEMOGLOBIN 10.8 g/dl (13.5-18.0); LYMPH # 1.1 K/mm3 (1.2-3.4); LYMPH % 12.3 % (20.0-51.0); MEAN CELL VOLUME 95 fl (80.0-100.0); MEAN CORPUSCULAR HEMOGLOBIN 33 pg (27-31); MEAN CORPUSCULAR HGB CONC 35 g/dl (33.0-37.0); MEAN PLATELET VOLUME 8.9 fl (7.4-10.4); MONO # 0.5 K/mm3 (0.1-0.6); MONO % 5.7 % (1.7-9.3); PLATELET COUNT 283 K/mm3 (130-400); RED BLOOD COUNT 3.26 M/mm3 (4.20-5.60); REDCELL DISTRIBUTION WIDTH-CV 12.3 % (11.5-14.5)
[2024-03-13 17:14] LABS: HEMATOCRIT 30.8 % (42.0-52.0)
[2024-03-13 17:17] LABS: INR 1.2 (0.8-3.0); PROTHROMBIN TIME 12.6 SECONDS (9.7-12.8)
[2024-03-13 17:36] LABS: ALBUMIN 3.5 g/dL (3.4-4.8); BILIRUBIN,TOTAL 0.5 mg/dL (0.2-1.2); CALCIUM 8.8 mg/dL (8.4-10.2); CREATININE, serum 1.05 mg/dL (0.72-1.25); POTASSIUM 4.5 mEq/L (3.5-4.5); TOTAL PROTEIN 6.8 g/dl (6.2-8.1)
[2024-03-13] MEDS ORDERED: NS 1,000 ML IV SCH (18:00)
[2024-03-13] MEDS ORDERED: Folic Acid 1 MG TAB PO SCH (18:10)
[2024-03-13] MEDS ORDERED: Multivitamin TAB PO SCH (18:10)
[2024-03-13] MEDS ORDERED: LORazepam 2 MG/ML 1 ML VIAL IV PRN (18:15)
[2024-03-13] MEDS ORDERED: Mag/Al Hydrox/Simeth Susp 30 ML CUP PO PRN (18:15)
[2024-03-13 18:30] LABS: COLLECTION METHOD CATHETER
[2024-03-13 18:42] LABS: PH 7.5 (5.0-8.5); URINE APPEARANCE CLOUDY (CLEAR/HAZY); URINE BLOOD 3+ (NEGATIVE); URINE COLOR ORANGE (YELLOW); URINE GLUCOSE NEGATIVE (NEGATIVE); URINE KETONE NEGATIVE (NEGATIVE); URINE NITRATE NEGATIVE (NEGATIVE); URINE PROTEIN(semi-quant) TRACE (NEGATIVE)
[2024-03-13] MEDS ORDERED: Budesonide Neb Susp 0.25 MG/2 ML AMP IH SCH (19:00)
[2024-03-13] MEDS ORDERED: Formoterol Neb Soln 20 MCG/2 ML UD IH SCH (19:00)
[2024-03-13 20:11] VITALS: BP 134/71; PULSE 95; TEMP 99.2
[2024-03-13 21:28] LABS: CALCIUM 8.6 mg/dL (8.4-10.2); POTASSIUM 4.1 mEq/L (3.5-4.5)
[2024-03-13 21:35] LABS: TRICYCLIC ANTIDEPRESS URINE NEGATIVE (NEGATIVE)
[2024-03-13 21:58] VITALS: BP 135/71; PULSE 85; TEMP 99.2
--- NOTE | 2024-03-13 22:46 | NUR ---
THE PATIENT ARRIVED DURING THE END OF DAY SHIFT. CURRENTLY THE PATIENT IS ALERT AND ORIENTED AND APPROPRIATE AND ABLE TO ANSWER ADMISSION QUESITONS. THE PATIENT IS A GOOD HISTORIAN.
[2024-03-14] VITALS (13 sets, daily range): BP systolic 112–152; BP diastolic 58–77; PULSE 59–89; TEMP 98–99.2
[2024-03-14 02:45] LABS: CALCIUM 8.5 mg/dL (8.4-10.2); CREATININE, serum 0.97 mg/dL (0.72-1.25); POTASSIUM 4.7 mEq/L (3.5-4.5)
--- NOTE | 2024-03-14 03:04 | NUR ---
DR. JUDD NOTIFIED REGARDING THE BMP RESULTS AT 2 AM. NO NEW ORDERS. NEXT DRAW WILL BE AT 5 AM. NA 127 AND POTASSIUM 4.7.
[2024-03-14 06:41] LABS: BASO % 0.2 % (0.0-2.0); EOS # 0.2 K/mm3 (0.0-0.7); EOS % 2.4 % (0.0-4.0); GRAN # 7.5 K/mm3 (1.4-6.5); GRAN % 79.3 % (42.2-75.2); HEMOGLOBIN 10.3 g/dl (13.5-18.0); LYMPH # 0.9 K/mm3 (1.2-3.4); LYMPH % 9.7 % (20.0-51.0); MEAN CELL VOLUME 95 fl (80.0-100.0); MEAN CORPUSCULAR HEMOGLOBIN 33 pg (27-31); MEAN CORPUSCULAR HGB CONC 34 g/dl (33.0-37.0); MEAN PLATELET VOLUME 8.9 fl (7.4-10.4); MONO # 0.8 K/mm3 (0.1-0.6); MONO % 8.1 % (1.7-9.3); PLATELET COUNT 254 K/mm3 (130-400); RED BLOOD COUNT 3.16 M/mm3 (4.20-5.60); REDCELL DISTRIBUTION WIDTH-CV 12.3 % (11.5-14.5)
[2024-03-14 06:44] LABS: HEMATOCRIT 30.1 % (42.0-52.0)
[2024-03-14 06:59] LABS: CALCIUM 8.4 mg/dL (8.4-10.2); CREATININE, serum 0.92 mg/dL (0.72-1.25); POTASSIUM 4.2 mEq/L (3.5-4.5)
[2024-03-14] MEDS ORDERED: Levothyroxine 0.1 MG,Levothyroxine 0.075 MG PO SCH (07:00)
[2024-03-14] MEDS ORDERED: LR 1,000 ML IV SCH (08:30)
[2024-03-14] MEDS ORDERED: hydrALAZINE 20 MG/ML 1 ML VIAL IV PRN (08:30)
[2024-03-14] MEDS ORDERED: Ondansetron 4 MG/2 ML VIAL IV PRN ×2 (08:30→11:30)
[2024-03-14] MEDS ORDERED: fentaNYL 50 MCG/ML 1 ML SYRINGE/VIAL [PACU/SDC ONLY] IV PRN (08:30)
[2024-03-14] MEDS ORDERED: HYDROmorphone 1 MG/1 ML SYRINGE [PACU/SDC ONLY] IV PRN ×2 (08:30)
[2024-03-14] MEDS ORDERED: Ondansetron 4 MG/2 ML VIAL ONE (08:32)
[2024-03-14] MEDS ORDERED: NS 10 ML IV ONE (08:32)
[2024-03-14] MEDS ORDERED: Lidocaine PF 2% (20 MG/ML) 5 ML VIAL ONE (08:35)
[2024-03-14] MEDS ORDERED: dexAMETHasone 10 MG/ML VIAL ONE (08:36)
--- NOTE | 2024-03-14 08:55 | NUR ---
Pt. to the OR at this time.
[2024-03-14] MEDS ORDERED: Tiotropium 2.5 MCG Respimat MDI IH SCH (09:00)
[2024-03-14] MEDS ORDERED: Sertraline 25 MG TAB PO SCH (09:00)
[2024-03-14] MEDS ORDERED: Tiotropium 18 MCG **** subs to Tiotropium 5 mcg IH SCH (09:00)
[2024-03-14 09:28] LABS: CALCIUM 8.4 mg/dL (8.4-10.2); CREATININE, serum 0.88 mg/dL (0.72-1.25); POTASSIUM 4.2 mEq/L (3.5-4.5)
[2024-03-14] MEDS ORDERED: Tranexamic Acid 1,000 MG/10 ML VIAL ONE (09:34)
[2024-03-14] MEDS ORDERED: Propranolol 1 MG/ML 1 ML AMP ONE (10:37)
[2024-03-14] MEDS ORDERED: Topical Skin Adhesive 1 EACH (1 ML) TOP ONE (10:58)
[2024-03-14] MEDS ORDERED: Magnes Hydrox (MOM) 80 MG/ML 30 ML CUP PO PRN (11:30)
[2024-03-14] MEDS ORDERED: traMADol 50 MG TAB PO PRN (11:30)
--- NOTE | 2024-03-14 12:10 | NUR ---
Pt. to the Floor from PACU. Pt. remains alert to self and place but still having some forgetfullness. IV to lt. wrist patent. Assessment unchanged. Pt. denies pain at this time. Call light within reach.
[2024-03-14 14:43] LABS: CALCIUM 8.6 mg/dL (8.4-10.2); CREATININE, serum 1.04 mg/dL (0.72-1.25); POTASSIUM 5.2 mEq/L (3.5-4.5)
--- NOTE | 2024-03-14 14:54 | NUR ---
Data: Spiritual care visit offered during Intensive Care Unit Registered Nurse rounds. Patient declined. Assessment: None. Patient declined. Plan of Care: Chaplains will remain available as requested while Patient is admitted to this hospital.
[2024-03-14] MEDS ORDERED: ceFAZolin 2 G in Water For Injection,Sterile 20 ML IV SCH (16:00)
[2024-03-14 20:29] LABS: CALCIUM 8.5 mg/dL (8.4-10.2); CREATININE, serum 0.96 mg/dL (0.72-1.25); POTASSIUM 4.7 mEq/L (3.5-4.5)
[2024-03-14] MEDS ORDERED: Melatonin 3 MG TAB PO PRN (21:00)
[2024-03-14] MEDS ORDERED: Sennosides/Docusate 8.6-50 MG TAB PO SCH (21:00)
[2024-03-15] VITALS (14 sets, daily range): BP systolic 95–149; BP diastolic 60–69; PULSE 77–105; TEMP 97.9–98.4
[2024-03-15 06:43] LABS: BASO % 0.1 % (0.0-2.0); GRAN # 8.5 K/mm3 (1.4-6.5); GRAN % 84.4 % (42.2-75.2); HEMOGLOBIN 10.1 g/dl (13.5-18.0); LYMPH # 0.6 K/mm3 (1.2-3.4); LYMPH % 5.8 % (20.0-51.0); MEAN CELL VOLUME 92 fl (80.0-100.0); MEAN CORPUSCULAR HEMOGLOBIN 32 pg (27-31); MEAN CORPUSCULAR HGB CONC 35 g/dl (33.0-37.0); MEAN PLATELET VOLUME 9.1 fl (7.4-10.4); MONO # 0.9 K/mm3 (0.1-0.6); MONO % 9.1 % (1.7-9.3); PLATELET COUNT 255 K/mm3 (130-400); RED BLOOD COUNT 3.16 M/mm3 (4.20-5.60); REDCELL DISTRIBUTION WIDTH-CV 12.2 % (11.5-14.5)
[2024-03-15 06:48] LABS: HEMATOCRIT 29.2 % (42.0-52.0)
[2024-03-15 07:12] LABS: CALCIUM 8.5 mg/dL (8.4-10.2); POTASSIUM 4.4 mEq/L (3.5-4.5)
[2024-03-15] MEDS ORDERED: Calcium Carbonate 500 MG TAB PO SCH (09:00)
[2024-03-15] MEDS ORDERED: Ascorbic Acid 500 MG TAB PO SCH (09:00)
--- NOTE | 2024-03-15 09:00 | NUR ---
Pt. sitting up in bed. Pt. is A&OX2 with some forgetfulness assessment complete. IV to lt. wrist patent, IV fluids infusing per orders. Dressing to lt. hip CDI, aquacell. Cline catheter to DD, clear yellow urine noted. Pt. denies pain or other needs, call light within reach.
--- NOTE | 2024-03-15 11:05 | NUR ---
SW met with patient to complete initial assessment for discharge planning. Patient alert and oriented x 2, poor memory recall. Patient stated he lives at home alone, and verified that he has cane, walker and grab bars. Patient confirmed that he uses [facility] pharmacy. Patient unsure about his PCP. Patient did not recall that he had hip surgery but did "kind of remember falling." SW called patient's daughter Elva ([phone]) to discuss discharge planning. Elva stated that patient does not live alone but has been at [facility] for 2 years, he sees Dr. Reich as his PCP and uses [facility]. Daughter stated that patient was at [facility] 2 years ago after knee surgery. SW discussed [facility] rehab and SNF rehab. Medicare.gov list left in room for daughter to review, she is agreeable to [facility] referral. SW called [facility] director Eve to make referral. SW will follow up with daughter upon her arrival to hospital for SNF preferences as back up plan. Discharge plan: [facility] vs SNF
[2024-03-15] MEDS ORDERED: Multivitamin TAB PO SCH (12:00)
--- NOTE | 2024-03-15 15:04 | NUR ---
SW met briefly with patient's daughter and ex to discuss discharge plan. Discussed referral to [facility] as requested earlier today. Medicare.gov list of SNFs discussed. Dtr and ex shown [facility] unit and are excited for patient to rehab there if accepted. Patient agreeable to rehab. Discharge plan: [facility] vs SNF
[2024-03-16] VITALS (12 sets, daily range): BP systolic 119–146; BP diastolic 66–81; PULSE 70–100; TEMP 97.3–100.4
--- NOTE | 2024-03-16 05:10 | NUR ---
PT had been unable to void since batres dc'd yesterday, bladder scan at 2230 showed 280 cc, and >[address] Bahena, order rec'd for straight cath x1. Using 14f straight cath and sterile technique, obtained 500 cc dk mitra urine, pt tolerated procedure well.
[2024-03-16 06:14] LABS: BASO % 0.2 % (0.0-2.0); EOS % 0.3 % (0.0-4.0); GRAN # 7.8 K/mm3 (1.4-6.5); GRAN % 81.3 % (42.2-75.2); HEMOGLOBIN 10.2 g/dl (13.5-18.0); LYMPH # 0.9 K/mm3 (1.2-3.4); LYMPH % 9.4 % (20.0-51.0); MEAN CELL VOLUME 92 fl (80.0-100.0); MEAN CORPUSCULAR HEMOGLOBIN 32 pg (27-31); MEAN CORPUSCULAR HGB CONC 35 g/dl (33.0-37.0); MEAN PLATELET VOLUME 9.2 fl (7.4-10.4); MONO # 0.8 K/mm3 (0.1-0.6); MONO % 8.3 % (1.7-9.3); PLATELET COUNT 249 K/mm3 (130-400); RED BLOOD COUNT 3.17 M/mm3 (4.20-5.60); REDCELL DISTRIBUTION WIDTH-CV 12.3 % (11.5-14.5)
[2024-03-16 06:27] LABS: HEMATOCRIT 29.2 % (42.0-52.0)
[2024-03-16 06:36] LABS: CALCIUM 8.3 mg/dL (8.4-10.2); CREATININE, serum 1.04 mg/dL (0.72-1.25); POTASSIUM 4.1 mEq/L (3.5-4.5)
--- NOTE | 2024-03-16 10:07 | NUR ---
PT RESTING IN CHAIR, ALERT AND ORIENTED TO SELF. PT UNABLE TO RATE PAIN BUT SAYS "IT HURTS WHEN WALKING AND ITS GETTING WORSE". GAVE PT PAIN PILL. ASSESSED PT COMPLAINING OF FEELING LIKE HAVING TO PEE BUT UNABLE TO. GOT ORDERS TOP BLADDER SCAN AND PLACE SHUKLA IF GREATER THAN 300 ML.NO OTHER COMPLAINTS AT THIS TIME. CALL LIGHT WITHIN REACH.
--- NOTE | 2024-03-16 10:45 | NUR ---
BLADDER SCANNED AT 1015. 175 MLS IN BLADDER. NO CATHETER REQUIRED.
--- NOTE | 2024-03-16 13:14 | NUR ---
PT SAID HE FELT LIKE HE NEEDED TO PEE. WAS UNABLE TO GO AGAIN. BLADDER SCAN READ 270 MLS.
--- NOTE | 2024-03-16 14:16 | NUR ---
Aida, [facility] Director advised she will be able to accept patient, however they are waiting on a UA for patient as he had a slight temperature overnight.
[2024-03-16] MEDS ORDERED: BREO ELLIPTA 21 EACH IH (15:20)
[2024-03-16] MEDS ORDERED: B-121000 MCG PO (15:20)
[2024-03-16] MEDS ORDERED: ZYRTEC 10MG10 MG PO (15:21)
[2024-03-16] MEDS ORDERED: VITAMIN D31000 IU PO (15:22)
--- NOTE | 2024-03-16 15:27 | NUR ---
PT COMPLAINED OF FEEL LIKE NEEDING TO PEE AGAIN. COULD NOT GO. BLADDER SCAN READ 317 MLS. PUT IN SHUKLA CATHETER PER DR ORDERS. GOT UA.
[2024-03-16 15:33] LABS: COLLECTION METHOD CLEAN CATCH
[2024-03-16 15:40] LABS: PH 5.5 (5.0-8.5); URINE APPEARANCE CLEAR (CLEAR/HAZY); URINE BLOOD 2+ (NEGATIVE); URINE COLOR Dark Yellow (YELLOW); URINE GLUCOSE NEGATIVE (NEGATIVE); URINE KETONE TRACE (NEGATIVE); URINE NITRATE NEGATIVE (NEGATIVE); URINE PROTEIN(semi-quant) 1+ (NEGATIVE); URINE UROBILINOGEN 0.2 E.U/dL (0.2-1.0)
--- NOTE | 2024-03-16 19:29 | NUR ---
report received from randell peck. pt resting in bed with eyes closed, equal and unlabored breaths noted. pt given PRN medication for pain on previous shift, no outward signs of pain noted. batres catheter in place with clear yellow urine. pt on 2L NC, tolerating well. fall precautions in place. call light in reach. all needs met at this time.
--- NOTE | 2024-03-16 21:20 | NUR ---
shift assessment complete, see documentation. pt alert and oriented to person and place. pt pleasant and confused but tolerates cares well. pt did well with hs meds. pt denies pain. fall precautions in place. call light in reach. all needs met at this time.
[2024-03-17 01:07] VITALS: BP_SYST 146
[2024-03-17 04:44] VITALS: BP 135/76; PULSE 92; TEMP 98.2
[2024-03-17 04:45] VITALS: BP_SYST 135
[2024-03-17 06:04] LABS: BASO % 0.2 % (0.0-2.0); EOS # 0.1 K/mm3 (0.0-0.7); GRAN # 7.4 K/mm3 (1.4-6.5); GRAN % 78.6 % (42.2-75.2); LYMPH % 10.7 % (20.0-51.0); MEAN CELL VOLUME 92 fl (80.0-100.0); MEAN CORPUSCULAR HGB CONC 36 g/dl (33.0-37.0); MEAN PLATELET VOLUME 8.9 fl (7.4-10.4); MONO # 0.9 K/mm3 (0.1-0.6); MONO % 9.1 % (1.7-9.3); PLATELET COUNT 235 K/mm3 (130-400); RED BLOOD COUNT 2.98 M/mm3 (4.20-5.60); REDCELL DISTRIBUTION WIDTH-CV 12.4 % (11.5-14.5)
[2024-03-17 06:05] LABS: HEMATOCRIT 27.4 % (42.0-52.0); HEMOGLOBIN 9.8 g/dl (13.5-18.0); MEAN CORPUSCULAR HEMOGLOBIN 33 pg (27-31)
[2024-03-17 06:20] LABS: CALCIUM 8.4 mg/dL (8.4-10.2); CREATININE, serum 0.97 mg/dL (0.72-1.25); POTASSIUM 3.9 mEq/L (3.5-4.5)
[2024-03-17 07:33] VITALS: BP 142/76; PULSE 93; TEMP 99.1
[2024-03-17 10:00] VITALS: BP_SYST 142
--- NOTE | 2024-03-17 10:00 | NUR ---
Pt. sitting up in Chair. Pt. is alert and confused. Shift assessment complete. INT to lt. hand patent. Pt. reports pain to lt. hip at a 4 on pain scale, gave pain meds per orders. Pt. denies further needs, call light within reach.
[2024-03-17] MEDS ORDERED: ASPI325T6 PO (10:58)
[2024-03-17] MEDS ORDERED: DUO-KAPS1 CAP PO (11:00)
[2024-03-17] MEDS ORDERED: ROXICODONE 55 MG/TAB PO (11:00)
[2024-03-17] MEDS ORDERED: TYLENOL 500MG500 MG PO (11:00)
[2024-03-17] MEDS ORDERED: VITAMIN C500 MG PO (11:01)
[2024-03-17] MEDS ORDERED: SENEXON-S 50-81 EACH PO (11:01)
[2024-03-17] MEDS ORDERED: OSCAL 500 TAB500 MG PO (11:02)
--- NOTE | 2024-03-17 11:06 | NUR ---
Patient to discharge to [facility] today.
--- NOTE | 2024-03-17 11:16 | NUR ---
Orders for discharge to [facility]. Pt. is eating will move over when finished.
[2024-03-17 11:23] VITALS: BP 97/64; PULSE 114; TEMP 98.3
--- NOTE | 2024-03-17 12:38 | NUR ---
Pt. transfered to [facility].
== END 2024-03-17 12:39 | DRG 470 ==
LOC: COL.ER 14:52 → SURG 16:24
PROVIDERS: Hospitalist; Physician Assistant; ADMIT Internal Medicine
PROC: 0SRS019 Replacement of Left Hip Joint, Femoral Surface with Metal Synthetic Substitute, Cemented, Open Approach (ICD-10-PCS; principal; 2024-03-13)
DX: S72.92XA Unspecified fracture of left femur, initial encounter for closed fracture (principal); E87.1 Hypo-osmolality and hyponatremia; R09.02 Hypoxemia; J44.9 Chronic obstructive pulmonary disease, unspecified; N40.1 Benign prostatic hyperplasia with lower urinary tract symptoms; R33.8 Other retention of urine; F32.A Depression, unspecified
CPT/HCPCS: A4314; A6197; A9270; A9284; C1776; J0690; J1100; J1800; J2270; J2405; J2704; J2795; J3010; J7030; J7120

== ENCOUNTER 2024-03-17 09:41 | Inpatient (IN) | payer MEDICARE, BC ==
[~2024-03-17] VITALS: Ht 182.9 cm; Wt 97.5 kg
[~2024-03-17 09:41] MED LIST changes: +B-121000 MCG PO; +BREO ELLIPTA 21 EACH IH; -Thiamine 100 MG TAB PO SCH; +VITAMIN D31000 IU PO; +ZYRTEC 10MG10 MG PO
[2024-03-17] MEDS ORDERED: ASPI325T6 PO (10:58)
[2024-03-17] MEDS ORDERED: DUO-KAPS1 CAP PO (11:00)
[2024-03-17] MEDS ORDERED: TYLENOL 500MG500 MG PO (11:00)
[2024-03-17] MEDS ORDERED: ROXICODONE 55 MG/TAB PO (11:00)
[2024-03-17] MEDS ORDERED: VITAMIN C500 MG PO (11:01)
[2024-03-17] MEDS ORDERED: SENEXON-S 50-81 EACH PO (11:01)
[2024-03-17] MEDS ORDERED: OSCAL 500 TAB500 MG PO (11:02)
[2024-03-17] MEDS ORDERED: Polyethylene Glycol 3350 17 GM PDS PO PRN (13:00)
[2024-03-17] MEDS ORDERED: Acetaminophen 500 MG TAB PO PRN (13:00)
[2024-03-17] MEDS ORDERED: Naloxone 0.4 MG/ML VIAL IV PRN (13:00)
[2024-03-17] MEDS ORDERED: Docusate Sodium 100 MG CAP PO PRN (13:00)
[2024-03-17] MEDS ORDERED: Sennosides/Docusate 8.6-50 MG TAB PO PRN (13:00)
[2024-03-17] MEDS ORDERED: oxyCODONE 5 MG TAB PO PRN (13:15)
[2024-03-17 17:10] VITALS: BP 96/58; PULSE 100; TEMP 98.2
[2024-03-17 18:45] VITALS: BP 152/70; PULSE 60
[2024-03-17 19:00] VITALS: BP_SYST 136
--- NOTE | 2024-03-17 19:00 | NUR ---
RECEIVED CHANGE OF SHIFT REPORT FROM DAY SHIFT NURSE. PATIENT UP IN W/C, EXIT ALARM ON, CALL LIGHT WITHIN PATIENT'S REACH. DENIES ANY NEEDS AT THIS TIME.
[2024-03-17 19:04] VITALS: BP 136/63; PULSE 66
[2024-03-17] MEDS ORDERED: Formoterol 20 MCG,Budesonide 0.5 MG IH SCH (21:00)
[2024-03-18 05:42] VITALS: BP 114/73; PULSE 96; TEMP 98.5
[2024-03-18 07:00] VITALS: BP_SYST 114
--- NOTE | 2024-03-18 07:29 | NUR ---
CHANGE OF SHIFT REPORT GIVEN TO DAY SHIFT NURSEMARTITA.
--- NOTE | 2024-03-18 08:30 | NUR ---
PATIENT IS ALERT. SHOWING SIGNS OF CONFUSION/DISORIENTED. UNABLE TO STATE WHERE HE IS OR WHY HE'S HERE. NO C/O PAIN OR N/V. PERIPHERAL IV IN L WRIST IS INTACT. PLANNING TO TAKE OUT IV TODAY. PATIENT IS ASSIST X1-2 WITH GAIT BELT AND WALKER. PATIENT IS VERY WEAK AND UNSTEADY AT THIS TIME. REPEATING SAME THOUGHTS OVER AND OVER. NO FURTHER NEEDS AT THIS TIME. CALL LIGHT WITHIN REACH.
[2024-03-18] MEDS ORDERED: Tiotropium 2.5 MCG Respimat MDI IH SCH (09:00)
[2024-03-18] MEDS ORDERED: Multivitamin TAB PO SCH (09:00)
[2024-03-18] MEDS ORDERED: Cholecalciferol (Vit D3) 1000 Units TAB PO SCH (09:00)
[2024-03-18] MEDS ORDERED: Sertraline 25 MG TAB PO SCH (09:00)
[2024-03-18] MEDS ORDERED: Calcium Carbonate 500 MG TAB PO SCH (09:00)
[2024-03-18] MEDS ORDERED: Ascorbic Acid 500 MG TAB PO SCH (09:00)
[2024-03-18] MEDS ORDERED: Cetirizine 10 MG TAB PO SCH (09:00)
[2024-03-18] MEDS ORDERED: Tiotropium 18 MCG **** subs to Tiotropium 5 mcg IH SCH (09:00)
[2024-03-18] MEDS ORDERED: Cyanocobalamin (Vit B-12) 1,000 MCG TAB PO SCH (09:00)
--- NOTE | 2024-03-18 15:21 | NUR ---
Waterside Worker attempted to contact patient's daughter, Elva to complete initial intake as patient has noted confusion. SW left Elva a message and requested she call back. SW met with patient to discuss discharge planning. Per previous SW notes, patient lives at [facility] and sees Dr. Reich for primary care. Notes also indicated patient uses [facility] for medications. When SW asked patient if he is living over at [facility] patient stated "I was". Patient accepted team conference notes and SW explained there was no discharge date set at this time and that she is here to assist with any recommendations. SW contacted [facility] and spoke with Connie. SW also faxed clinical updates for their review.
[2024-03-18 18:04] VITALS: BP 127/69; PULSE 98; TEMP 98.1
[2024-03-18 19:00] VITALS: BP_SYST 127
--- NOTE | 2024-03-19 02:29 | NUR ---
NURSING SHIFT ASSESSMENT COMPLETED. THE PATIENT WAS ALERT BUT NOT ORIENTED TO PLACE, TIME OR SITUATION. THE PATIENT DOES NOT USE THE CALL LIGHT BUT RATHER SHOUTS OUT LOUDLY FOR HELP. THE PATIENT IS VERY FORGETFUL. 2:1 ASSIST WITH A GAIT BELT AND A WALKER TO GET FROM THE RECLINER TO THE BED. THE PATIENT HAD DIFFICULTY AND COULD NOT HAVE AMBULATED VERY FAR. FRESH WATER AND POSITIONING FOR COMFORT DONE AT THIS TIME. THE PATIENT DENIED PAIN OR THE NEED FOR PAIN INTERVENTIONS. CALL LIGHT AND PERSONAL BELONGINGS WITHIN REACH. BED IN LOW POSITION. BED ALARM ON.
[2024-03-19 05:11] VITALS: BP 131/72; PULSE 100; TEMP 98.4
[2024-03-19 07:00] VITALS: BP_SYST 131
--- NOTE | 2024-03-19 08:30 | NUR ---
PATIENT IS ALERT AND ORIENTED TO SELF AND TIME. CONFUSION TO WHERE HE IS AT AND WHY HE IS HERE. PATIENT IS EATING BREAKFAST BY HIMSELF. ASSESSED INNER BUTTOCK STAGE 1 PRESSURE ULCER AND COVERED WITH MEPILEX. PATIENT HAS INDWELLING CATHETER THAT IS DRAINING CLEAR, YELLOW URINE. AQUACELL DRESSING ON L HIP IS CLEAN, DRY, AND INTACT. NO C/O PAIN. NO FURTHER NEEDS AT THIS TIME. CALL LIGHT WITHIN REACH AND PATIENT REMINDED HOW TO USE IT.
[2024-03-19] MEDS ORDERED: Lidocaine 2% (20 MG/ML) 20 ML UROJET TOP PRN (09:45)
--- NOTE | 2024-03-19 10:32 | NUR ---
PATIENT ALERT AND ORIENTED X2, WITH SOME CONFUSION AND FORGETFULNESS. SHUKLA TO DD WITH YELLOW OUTPUT. AQUACELL TO LEFT HIP, CDI. PATIENT HAD MEDIUM SOFT FORMED BM THIS AM. TOLERATING BREAKFAST. NO FURTHER NEEDS. CALL LIGHT IN REACH. BED ALARM ON.
--- NOTE | 2024-03-19 11:12 | NUR ---
Oracle Brm Developer contacted patient's daughter, Elva to explain her role in discharge planning and to schedule family meeting for Saturday, the at 1030. Elva stated she will try to be there in person, but may need to attend by phone. Elva express concerns with patient's nutrition so EVETTE collaborated with Emma, Dietitian who will follow up with Elva on plan of care. EVETTE also was contacted by [facility] and they advised they did not receive the faxed updates. EVETTE refaxed them.
[2024-03-19 18:03] VITALS: BP 134/82; PULSE 96; TEMP 99.4
[2024-03-19 19:00] VITALS: BP_SYST 134
--- NOTE | 2024-03-19 20:00 | NUR ---
NURSING SHIFT ASSESSMENT COMPLETED. THE PATIENT WAS ALERT BUT NOT ORIENTED TO PLACE, SITUATION, TIME OR DATE. THE PATIENT WAS IN THE RECLINER WATCHING TV. AT THIS TIME THE PATIENT APPEARED COMFORTABLE AND DENIED NEEDS. THE PATIENT DID STATE THAT HE WAS NOT READY TO GET INTO BED YET AND HE ALSO STATED THAT HE WANTED TO WATCH MORE TV. THE CHAIR ALARM WAS ON AND PERSONAL BELONGINGS AND CALL LIGHT WITHIN REACH. THE PATIENT DOES NOT USE THE CALL LIGHT HOWEVER. HE SHOUTS OUT LOUDLY FOR HELP OR YELLS IF HE NEEDS ANYTHING. THE CALL LIGHT HAS BEEN SHOWN TO HIM MULTIPLE TIMES THROUGHOUT THE DAY AND NIGHT. NO CALL LIGHT USAGE NOTED.
[2024-03-20 04:55] VITALS: BP 129/77; PULSE 97; TEMP 98.5
[2024-03-20 07:15] VITALS: BP_SYST 129
--- NOTE | 2024-03-20 10:19 | NUR ---
Patient awake, alert, oriented to self. Confused, yells at times. Reoriented frequently. Denies pain, shortness of breath, or nausea. Tolerated breakfast well. Shower this AM with therapy. Cline in place draining clear, yellow urine. Bed alarm on. Bed in lowest position with call light within reach.
--- NOTE | 2024-03-20 15:17 | NUR ---
Substance Abuse Nurse spoke with patient's daughter, Elva to check in before the weekend. Elva advised for next week's meeting, she will likely call in. EVETTE reviewed ST note with Elva as yesterday she had concerns with patient's diet. Elva had no further questions at this time for SW.
--- NOTE | 2024-03-20 16:39 | NUR ---
Admission QIM scores were reviewed by the team. Code of 88 chosen for lower body dressing was determined by team discussion to be the most usual performance before interventions for this patient during the assessment period. Code of 2 chosen for lying to sitting side of bed was determined by team discussion to be the most usual performance before interventions for this patient during the assessment period. Code of 2 chosen for sit to stand was determined by team discussion to be the most usual performance for this patient during the discharge assessment period. Code of 2 chosen for chair to bed was determined by team discussion to be the most usual performance for this patient during the discharge assessment period. Code of 3 chosen for walking 10 feet was determined by team discussion to be the most usual performance for this patient during the discharge assessment period.--Aida Mejía, PD
[2024-03-20 18:27] VITALS: BP 124/71; PULSE 88; TEMP 98.3
[2024-03-20 19:00] VITALS: BP_SYST 124
[2024-03-21 04:52] VITALS: BP 124/71; PULSE 81; TEMP 98.1
[2024-03-21 07:12] VITALS: BP_SYST 124
--- NOTE | 2024-03-21 08:52 | NUR ---
PT RESTING IN BED, ALERT AND ORIENTEDX3 WITH CONFUSION. RATES PAIN 5/10 IN THE LEFT HIP. ASSESSED PT. AQUACELL TO LEFT HIP. GAVE MORNING MEDS AND PAIN PILL. NO OTHER COMPLAINTS AT THIS TIME. CALL LIGHT WITHIN REACH.
[2024-03-21 16:41] VITALS: BP 114/72; PULSE 74; TEMP 98.1
[2024-03-21 19:15] VITALS: BP_SYST 114
[2024-03-22 05:03] VITALS: BP 134/75; PULSE 81; TEMP 98.3
[2024-03-22 07:35] VITALS: BP_SYST 134
--- NOTE | 2024-03-22 10:44 | NUR ---
PT RESTING IN BED, AGREED TO SIT IN CHAIR FOR LIMITED TIME BEFORE REPEATEDLY ASKING TO BE MOVED BACK TO BED. PT DENIES PAIN EXCEPT WITH MOVEMENT. PT ALERT, HAS MEMORY GAPS, REPORTS BEING TIRED. BED ALARM ON, CALL LT IN REACH.
--- NOTE | 2024-03-22 12:31 | NUR ---
PT WAS EATING LUNCH INDEPENDENTLY AND BEGAN CHOKING ON GROUND HAMBURGER. PT COUGHING EXCESSIVELY FOR 3-4 MINUTES, ABLE TO MAINTAIN AIRWAY, EVENTUALLY COUGHED UP GROUND HAMBURGER. PT ABLE TO DRINK LIQUIDS WITHOUT WORSENING COUGH. LUNGS CTA AT THIS TIME. PT CONTINUES TO CLEAR THROAT INTERMITTENTLY, DRINKING MILK WITHOUT ISSUE, GIVEN HOT TEA WITH HONEY. PT SITTING IN BED, HOB AT 90 DEGREES, CALL LT IN REACH.
--- NOTE | 2024-03-22 17:09 | NUR ---
PT UP TO CHAIR WTIH ASSIST X1. PT REQUESTS TO GO BACK TO BED, AGREES TO STAY IN CHAIR UNTIL AFTER SUPPER. NURSE ASSISTED PT IN FINDING A TV SHOW HE WANTED TO WATCH. PT'S CALL LT IS IN REACH, BED ALARM ON.
[2024-03-22 18:00] VITALS: BP 123/75; PULSE 83; TEMP 98.1
--- NOTE | 2024-03-22 18:37 | NUR ---
PT TRANSFERRED FROM RECLINER BACK TO BED WITH TWO ASSIST, GAIT BELT, AND WALKER. PT UNSTEADY, WEAKER THAN HE WAS EARLIER IN THE DAY. PT C/O PAIN DURING TRANSFER, DENIES PAIN OR NEEDS WHEN BACK IN BED AND REPOSITIONED.
[2024-03-22 19:04] VITALS: BP_SYST 123
[2024-03-23 05:01] VITALS: BP 124/69; PULSE 83; TEMP 98.4
[2024-03-23 07:00] VITALS: BP_SYST 124
--- NOTE | 2024-03-23 08:00 | NUR ---
PATIENT IS A&O X2, DISPLAYS FORGETFULNESS/CONFUSION AT TIMES. PATIENT HAS A NOTE IN ROOM TO REMIND HIM NOT TO YELL OR GET UP WITHOUT USING HIS CALL LIGHT. FALL PRECAUTIONS INPLACE. VSS. C/O PAIN IN LLE AND REQUESTING SOMETHING FOR PAIN BEFORE THERAPY. GAVE PRN OXYCODONE & TYLENOL WITH AM MEDS, SEE MAR. TOLERATING SOFT & BITE SIZE DIET. SHUKLA TO DD. 2 ASSIST WITH WALKER. PT/OT/ST CONSULTED. HEAD TO TOE ASSESSMENT COMPLETE. CALL LIGHT IN REACH. BED ALARM ON.
--- NOTE | 2024-03-23 15:02 | NUR ---
Abattoir Supervisor met with patient to check in after the weekend. Patient stated he just got done with "torture", meaning therapy. Patient was smiling and seemed to be in good spirits. Patient denied any questions for SW at this time.
[2024-03-23 17:39] VITALS: BP 133/77; PULSE 70; TEMP 98.7
[2024-03-23 19:00] VITALS: BP_SYST 133
--- NOTE | 2024-03-23 21:00 | NUR ---
PT A&O X2 AND FORGETFUL SITTING UP IN CHAIR. ASSESSMENT COMPLETE & HS MEDS GIVEN. AQUACELL DRESSING TO LEFT HIP IS CDI. PT DENYING PAIN. SHUKLA TO DD WITH JAYLA COLORED OUTPUT. CHAIR ALARM ON & CALL LIGHT IN REACH. PT DENYING FURTHER NEEDS.
[2024-03-24 05:47] VITALS: BP 136/72; PULSE 80; TEMP 97.6
--- NOTE | 2024-03-24 05:54 | NUR ---
pt resting in bed with unlabored resp. denying pain or further needs this morning. call light in reach & fall precautions in place
[2024-03-24 07:00] VITALS: BP_SYST 136
--- NOTE | 2024-03-24 10:16 | NUR ---
PT UP WITH THERAPY. ATE 90% OF BREAKFAST. AM MEDS GIVEN ORDERED. PT FOLLOWING CARE PLAN WITH THERAPY. DENIES NEEDS OR PAIN.
[2024-03-24 13:24] LABS: CREATININE, serum 1.2 mg/dL (0.72-1.25); MAGNESIUM 1.7 mg/dL (1.6-2.6); POTASSIUM 4.6 mEq/L (3.5-4.5)
--- NOTE | 2024-03-24 13:24 | NUR ---
Quarter Folder faxed clinical updates to Barbara RODRIGUEZ
[2024-03-24 13:56] LABS: HEMOGLOBIN 10.6 g/dl (13.5-18.0); MEAN CELL VOLUME 92 fl (80.0-100.0); MEAN CORPUSCULAR HEMOGLOBIN 32 pg (27-31); MEAN CORPUSCULAR HGB CONC 35 g/dl (33.0-37.0); MEAN PLATELET VOLUME 8.4 fl (7.4-10.4); PLATELET COUNT 437 K/mm3 (130-400); RED BLOOD COUNT 3.31 M/mm3 (4.20-5.60); REDCELL DISTRIBUTION WIDTH-CV 12.4 % (11.5-14.5)
[2024-03-24 13:57] LABS: HEMATOCRIT 30.5 % (42.0-52.0)
[2024-03-24 14:12] LABS: BAND 1 % (0-10); EOSINOPHIL 1 % (0-4); LYMPHOCYTE 14 % (20.0-51.0); METAMYELOCYTE 2 % (0-0); NEUTROPHILS 74 % (42.0-75.2)
--- NOTE | 2024-03-24 15:21 | NUR ---
DISCONTINUED SHUKLA CATHETER PER ORDERS. TIP INTACT PT TOLERATED WELL. 550 TEA COLORED URINE EMPTIED FROM SHUKLA BAG.
[2024-03-24 17:47] VITALS: BP 127/71; PULSE 80; TEMP 98.5
[2024-03-24 18:51] VITALS: BP_SYST 127
--- NOTE | 2024-03-24 20:30 | NUR ---
PT HAS NOT VOIDED SINCE SHUKLA WAS DISCONTINUED BY DAYSHIFT. BLADDER SCAN ONLY SHOWED 179MLS, PT ATTEMPTED TO VOID BUT UNABLE AT THIS TIME. WILL CONTINUE TO MONITOR
--- NOTE | 2024-03-24 21:30 | NUR ---
PT A&O X2-3 AND FORGETFUL. VSS. SHIFT ASSESSMENT & HS MEDS COMPLETE. PT REPORTING PAIN TO LEFT HIP & BUTTOCK, GAVE PRN OXYCODONE PER OCT. MEPILEX DRSG TO BUTTOCK CDI & AQUACELL TO LEFT HIP IS CDI. PT DENIES OTHER NEEDS. CALL LIGHT IN REACH & FALL PRECAUTIONS IN PLACE
--- NOTE | 2024-03-25 04:35 | NUR ---
WHEN PT HAS BEEN CONTINENT HE HAS ONLY BEEN ABLE TO VOID AROUND 100MLS EACH TIME. PT NOW COMPLAINING "I NEED TO PEE BUT IT WONT COME OUT" BLADDER SCAN SHOWED 460MLS. HOSPITALIST SUNSHINE NOTIFIED & NEW ORDER FOR INTERMITTENT CATH ONCE NOW. WHILE RN WAS GATHERING SUPPLIES PT HAD UNMEASURABLE INCONTINENT EPISODE. PT WAS THEN STRAIGHT CATH'D & GOT 350ML YELLOW OUTPUT.
[2024-03-25 06:11] VITALS: BP 134/76; PULSE 74; TEMP 97.6
--- NOTE | 2024-03-25 06:15 | NUR ---
PT RESTING IN BED WITH UNLABORED RESP & CALL LIGHT IN REACH & FALL PRECAUTIONS IN PLACE
[2024-03-25 06:57] VITALS: BP_SYST 134
--- NOTE | 2024-03-25 09:53 | NUR ---
SHIFT ASSESSMENT COMPLETE. VSS. PATIENT AWAKE IN BED. ALL MORNING MEDS GIVEN ORDERED. PATIENT STATES HE FEELS HE NEED TO HAVE A BM BUT IS UNABLE TO, MEDICATION GIVEN ORDERED TO HELP. PATIENT HAS NO OTHER NEEDS AT THIS TIME. FALL PRECAUTIONS IN PLACE AND CALL LIGHT IN REACH
[2024-03-25] MEDS ORDERED: Lidocaine 2% Viscous 15 ML UNIT DOSE MM PRN (12:00)
--- NOTE | 2024-03-25 14:58 | NUR ---
Criminal Lawyer participated in patient's family conference which included her daughter, Elva and son in law by phone. GOLDEN Parra Director opened the meeting by explaining it's purpose followed up by a medical update from Dr. Gaviria. PT/OT/ST provided update and recommendations. EVETTE reviewed discharge date of Mar 31 and advised she would be working with [facility] to determine if they can still accomodate patient's needs. Following the meeting, EVETTE contacted ADAM Rosales at [facility] and she plans to assess patient tomorrow at 1015. EVETTE provided this update to Elva by phone. EVETTE also followed up with patient later in the afternoon to provide copy of team conference notes.
[2024-03-25 20:29] VITALS: BP 102/63; PULSE 90; TEMP 98.4
[2024-03-25 20:34] VITALS: BP_SYST 102
--- NOTE | 2024-03-25 21:00 | NUR ---
PT A&O X3. VERY FORGETFUL. VSS. SHIFT ASSESSMENT & HS MEDS COMPLETE. AQUACELL TO LEFT HIP IS CDI. PT REPORTING SOME MILD PAIN TO HIS HIP, GAVE PRN TYLENOL PER MAR. DENIES FURTHER NEEDS. CALL LIGHT IN RECH & CHAIR ALARM ON
--- NOTE | 2024-03-25 21:45 | NUR ---
PT YELLING OUT & TRYING TO GET UP ON HIS OWN. REORIENTED PT & EDUCATED PT TO USE CALL LIGHT & NOT GET UP WITHOUT HELP. PT STATES HE IS HAVING PAIN TO HIS RIGHT ELBOW 04/28 & REQUESTING PAIN MEDS, GAVE PRN OXYCODONE PER OCT. PT BACK IN BED WITH CALL LIGHT IN REACH & FALL PRECAUTIONS IN PLACE
--- NOTE | 2024-03-26 03:50 | NUR ---
pt yelling out again that his right arm hurts rating pain 10. cms intact. gave prn oxycodone per oct.
[2024-03-26 05:38] VITALS: BP 127/72; PULSE 83; TEMP 98.1
[2024-03-26 06:30] VITALS: BP_SYST 127
--- NOTE | 2024-03-26 09:52 | NUR ---
SHIFT ASSESSMENT COMPLETE. VSS. PATIENT UP TO CHAIR AFTER INCONT. EPISODE FROM OVER NIGHT. ALL MORNING MEDS GIVEN ORDERED. PATIENT SET UP FOR BREAKFAST. PATIENT COMPLIANS OF PAIN IN RIGHT HAND AT THIS TIME STATES ICE PACK HELPS, PAIN DOES NOT GO UP THE RIGHT ARM JUST CONSTATNT IN THE RIGHT PALM AND TOP OF HAND. NIGHT NURSE REPORTS PATIENT HAD PAIN IN THE UPPER RIGHT ARM LAST NIGHT BUT HAD NO OTHER SX. REPORTED ALL RIGHT ARM AND HAND PAIN TO DR. MORALES THIS AM. PATIET HAS NO OTHER NEEDS AT THIS TIME. CALL LIGHT IN REACH AND FALL PRECAUTIONS IN PLACE.
--- NOTE | 2024-03-26 15:31 | NUR ---
Court Assistant spoke with Connie RN at [facility] to follow up on in person assessment. Connie advised it went well and they plan to accept patient back on Saturday. Connie stated their transportation could be there at 1000 to supervisor opening and picking patient. EVETTE cleared this transport time with IPR Director as we typically ask for discharges after 1100. EVETTE contacted patient's daughter, Elva who advised she spoke with Connie to get the above update. Elva requested [facility] as they work with other patients at [facility]. EVETTE contacted [facility] and faxed referral. Kathi at [facility] left EVETTE a message that they can accept patient.
[2024-03-26 17:03] VITALS: BP 111/65; PULSE 75; TEMP 97.4
[2024-03-26 18:55] VITALS: BP_SYST 111
--- NOTE | 2024-03-26 19:35 | NUR ---
Patient resting in chair. States his left upper arm aches a little bit but it's not really pain more discomfort. Needs met. Snack provided. Assessment complete. Call light and personal items in reach. Bed in low position and chair alarm on.
[2024-03-27 05:13] VITALS: BP 136/75; PULSE 83; TEMP 98
[2024-03-27 07:00] VITALS: BP_SYST 136
--- NOTE | 2024-03-27 07:30 | NUR ---
PATIENT AWAKE AND ALERT. PATIENT CAN BE FORGETFUL AND DOES NOT CALL FOR ASSISTANCE TO USE THE BATHROOM. PATIENT RESTING IN BED. CALL LIGHT WTIHIN REACH. FALL PRECAUTIONS IN PLACE. BED ALARM ON.
--- NOTE | 2024-03-27 14:21 | NUR ---
Line Installer Repairer faxed updates to Barbara ALBA. Discharge Plan; [facility] with [facility]
--- NOTE | 2024-03-27 14:30 | NUR ---
PATIENT IS RESTING IN HIS RECLINER. PATIENT DENIES ANY NEEDS OR COMPLAINTS AT THIS TIME. CALL LIGHT WITHIN REACH. FALL PRECAUTIONS IN PLACE.
[2024-03-27 16:47] VITALS: BP 121/68; PULSE 83; TEMP 98.2
[2024-03-27 18:50] VITALS: BP_SYST 121
--- NOTE | 2024-03-27 19:05 | NUR ---
Patient resting in chair. Denies any pain or needs at this time. Assessment complete. Call light and personal items in reach. Bed in low position and chair alarm on.
[2024-03-28 05:58] VITALS: BP 113/68; PULSE 84; TEMP 98.3
--- NOTE | 2024-03-28 06:18 | NUR ---
Patient resting in bed. Denies any pain. Needs met. No events over night. Call light and personal items in reach. Bed in low position and bed alarm on.
[2024-03-28 07:10] VITALS: BP_SYST 113
--- NOTE | 2024-03-28 09:05 | NUR ---
pt a&ox4 resting in bed. vss. meds given and assessment complete. aqaucell dressing to left hip is cdi. mepilex in place to coccyx. pt tolerated breakfast. pt denies needs and would like to go back to sleep. call light in reach. fall precautions in place.
[2024-03-28 18:32] VITALS: BP 97/59; PULSE 107; TEMP 98.2
[2024-03-28 20:25] VITALS: BP_SYST 97
--- NOTE | 2024-03-28 22:07 | NUR ---
PATIENT IS RESTING IN BED WATCHING TV. REPORTING AN ACHING PAIN IN HIS RIGHT HAND WHICH HE DESCRIBES ACHING AND 9/10, REQUESTING SOMETHING FOR PAIN SO PO TYLENOL IS PROVIDED. DENIES ANY OTHER NEEDS AT THIS TIME. CALL LIGHT IS WITHIN REACH. BED IS LOCKED AND IN LOW POSITION.
[2024-03-29 04:37] VITALS: BP 114/69; PULSE 85; TEMP 97.7
[2024-03-29 07:05] VITALS: BP_SYST 114
--- NOTE | 2024-03-29 09:05 | NUR ---
pt a&ox4 resting in bed. pt reports he wasnt very hungry for breakfast. vss. meds given and assessment complete. pt denies wanting to sit in recliner this morning and wants to go back to bed. aqaucell dressing to left hip is cdi. pt denies pain. no needs at this time. fall precautions in place. call light in reach.
[2024-03-29 18:18] VITALS: BP 111/62; PULSE 84; TEMP 97.4
[2024-03-29 19:00] VITALS: BP_SYST 111
--- NOTE | 2024-03-29 19:15 | NUR ---
PT REPORTS RT HAND PAIN, HAD OXYCODONE 5MG PO AT 1818. ES TYLENOL 1000MG PO GIVEN FOR PAIN. WRAPPED HAND IN WARM BLANKET. BED ALARM ON.
--- NOTE | 2024-03-29 20:10 | NUR ---
PT ASKING FOR PAIN MEDS, TOO SOON. ASSISTED PT TO BATHROOM, WAS INCONTINENT OF URINE IN DEPENDS. [facility] PROVIDED WITH NEW DEPENDS ON. BACK TO BED WITH WALKER AND STEADY GAIT. HAS CATHY BERRY TO LT HIP D/I. MILD BLE EDEMA PRESENT. BED ALARM ON.
--- NOTE | 2024-03-29 22:54 | NUR ---
Pt yells out for help, doesn't remember to use call light. Assisted to bathroom with walker/gaitbelt and assist of one. Voids and back to bed.
--- NOTE | 2024-03-30 02:21 | NUR ---
PT CALLS FOR PAIN MEDS, HAS RT HAND PAIN. PRN OXYCODONE AND ES TYLENOL GIVEN NOW.
--- NOTE | 2024-03-30 03:40 | NUR ---
Pt impulsive, sitting at edge of bed. Assisted to bathroom with walker/gaitbelt, voids and back to bed. Gown and socks changed d/t urine leakage.
[2024-03-30 06:00] VITALS: BP 120/62; PULSE 70; TEMP 97.6
[2024-03-30 08:20] VITALS: BP_SYST 120
--- NOTE | 2024-03-30 08:39 | NUR ---
PT LAYING IN BED HE STATES HE IS "TRYING TO SLEEP" - HOWEVER, HE IS ALERT AND ORIENTED. HE SAYS HE HAS GREAT PAIN IN HIS RIGHT HAND. I APPLIED A WARM MOSIT PACK TO HIS HAND. HE HAS NO OTHER CONCERNS AT THIS TIME. CALL LIGHT WITHIN REACH.
--- NOTE | 2024-03-30 14:27 | NUR ---
EVETTE met with patient to introduced self. Discussed planned discharge for tomorrow to return to [facility] with [facility]. Patient agreeable to return to [place] and voiced that he likes it there. EVETTE reviewed Medicare IM form with patient. Patient voiced understanding and signed form, original on chart and copy to patient. Discharge plan: [place] with HH
[2024-03-30 17:59] VITALS: BP 125/67; PULSE 80; TEMP 98.5
--- NOTE | 2024-03-30 18:18 | NUR ---
PT IS SITTING IN CHAIR, JUST FINISHED EATING. HIS CALL LIGHT IS WITHIN REACH AND ALL NEEDS HAVE BEEN MET AT THIS TIME.
[2024-03-30 18:30] VITALS: BP_SYST 125
--- NOTE | 2024-03-30 19:00 | NUR ---
BEDSIDE SHIFT REPORT RECIEIED AT THIS TIME.
--- NOTE | 2024-03-30 20:40 | NUR ---
SHIFT ASSESSMENT COMPLETED AT THIS TIME. PT A&O X2. PT REPORTS SLIGHT DISCOMFORT RATING A 2/10. PRN TYELNOL ADMINISTERED AT THIS TIME. SCHEDULED MEDICATIONS ADMINISTERED WITHOUT COMPLICATIONS. PT DENIES NAUSEA AND SOB. FALL PRECAUTIONS IN PLACE. CALL LIGHT WITHIN REACH. NO FURTHER NEEDS AT THIS TIME.
[2024-03-31 05:37] VITALS: BP 128/71; PULSE 73; TEMP 98.4
[2024-03-31 08:22] VITALS: BP_SYST 128
[2024-03-31] MEDS ORDERED: OSCAL 500 TAB500 MG PO (08:52)
[2024-03-31] MEDS ORDERED: ASPI325T6 PO (08:52)
[2024-03-31] MEDS ORDERED: VITAMIN C500 MG PO (08:53)
[2024-03-31] MEDS ORDERED: DUO-KAPS1 CAP PO (08:53)
[2024-03-31] MEDS ORDERED: ROXICODONE 55 MG/TAB PO (08:53)
--- NOTE | 2024-03-31 10:43 | NUR ---
Discharge orders and clinical updates faxed to [facility]. Patient to return to [facility] today.
--- NOTE | 2024-03-31 12:26 | NUR ---
PT WAS DISCHARGED WITH [facility]INEERING PSYCHOLOGIST. HE WAS WALKED OUT WITH THIS NURSE AND AND ADAM GARCIA. REPORT WAS GIVEN TO [facility]. HIS BELONGINGS WERE PACKED AND GIVEN TO ENGINEERING PSYCHOLOGIST, WELL HIS DISCHARGE PAPERS. ALL NEEDS MET AT DISCHARGE.
--- NOTE | 2024-03-31 14:22 | NUR ---
Discharge QIM scores were reviewed by the team. Code of 6 chosen for sit to stand was determined by team discussion to be the most usual performance for this patient during the discharge assessment period.--PD Naseem
== END 2024-03-31 12:05 | disposition home health service (06) | DRG 560 ==
PROVIDERS: Internal Medicine; ADMIT Physical Medicine & Rehabilitation Sports Medicine
DX: S72.002D Fracture of unspecified part of neck of left femur, subsequent encounter for closed fracture with routine healing (principal); E87.1 Hypo-osmolality and hyponatremia; R26.89 Other abnormalities of gait and mobility; J44.9 Chronic obstructive pulmonary disease, unspecified; D64.9 Anemia, unspecified; R09.02 Hypoxemia; F32.A Depression, unspecified; L89.151 Pressure ulcer of sacral region, stage 1; N40.1 Benign prostatic hyperplasia with lower urinary tract symptoms; R33.8 Other retention of urine; R41.3 Other amnesia; M25.531 Pain in right wrist; M25.532 Pain in left wrist; W01.0XXD Fall on same level from slipping, tripping and stumbling without subsequent striking against object, subsequent encounter; Z87.891 Personal history of nicotine dependence; Z79.899 Other long term (current) drug therapy; Z79.82 Long term (current) use of aspirin; Z96.642 Presence of left artificial hip joint; Z74.09 Other reduced mobility; Z79.891 Long term (current) use of opiate analgesic
CPT/HCPCS: A9270; A9284